=== PATIENT | female | born 1965 | race Caucasian/White ===

== ENCOUNTER → 2016-10-25 | Outpatient (CLI) | payer MEDICARE, MEDICAID ==
[~2016-10-25] MED LIST: ACET-1600 PO; ACID1TAB7 PO; ALBU8.5H5 INH; BOSE125T PO; BUME2TAB PO; CHOL20003 PO; DICL100G8 TD; DIPH-526 PO; ESCI10TA10 PO; ESCI5TAB7 PO; FLUC150T2 PO; FURO80TA3 PO; FURO80TA77 PO; METO5TAB5 PO; METR500T PO; POTA20PI5 PO; POTA20TA89 PO; SPIR100T PO; TADA20TA33 PO; TIZA4CAP PO; WARF10TA PO; WARF7.5T PO; ZOLP-413 PO; oxygen IH
[2016-10-25 13:21] LABS: ASPARTATE AMINO TRANSFERASE 33 U/L (15-37); BLOOD UREA NITROGEN 21 mg/dL (7-18)
== END | disposition home or self-care (01) ==
LOC: CFH 11:48
PROVIDERS: ATTEND Internal Medicine Cardiovascular Disease
DX: I27.0 Primary pulmonary hypertension (principal)
CPT/HCPCS: 36415; 80053

== ENCOUNTER → 2016-10-26 | Outpatient (CLI) | payer MEDICARE, MEDICAID | END | disposition home or self-care (01) | LOC: LAB 10:09 | PROVIDERS: ATTEND Nurse Practitioner Family | DX: Z13.6 Encounter for screening for cardiovascular disorders (principal); Z72.89 Other problems related to lifestyle | CPT/HCPCS: 36415; 80061; 86803 ==

== ENCOUNTER → 2017-08-05 | Outpatient (CLI) | payer MEDICARE, MEDICAID ==
[~2017-08-05] MED LIST changes: +CHOL2000 PO; -CHOL20003 PO; +DICL100G19 TD; -DICL100G8 TD
== END ==
LOC: CFH 09:29 → EDSTATUS 10:00
PROVIDERS: ATTEND Internal Medicine Cardiovascular Disease
DX: I27.0 Primary pulmonary hypertension (principal)
CPT/HCPCS: 93306

== ENCOUNTER → 2017-08-28 | Outpatient (CLI) | payer MEDICARE, MEDICAID ==
[2017-08-28 15:41] LABS: INTERNATIONAL NORMALIZED RATIO 1.1 (0.93-1.1); PROTHROMBIN TIME 11.4 Seconds (9.6-11.5)
[2017-08-28 15:41] LABS: ANION GAP 9 mmol/L (5-15); CALCIUM 8.9 mg/dL (8.5-10.1); CHLORIDE 106 mmol/L (98-107); CREATININE 1.38 mg/dL (0.55-1.02)
== END | disposition home or self-care (01) ==
LOC: CFH 14:36
PROVIDERS: ATTEND Orthopaedic Surgery
DX: Z12.31 Encounter for screening mammogram for malignant neoplasm of breast (principal); M75.101 Unspecified rotator cuff tear or rupture of right shoulder, not specified as traumatic; M19.011 Primary osteoarthritis, right shoulder
CPT/HCPCS: 36415; 80048; 83880; 85610; 77067

== ENCOUNTER 2017-09-04 09:19 | Inpatient (IN) | payer MEDICARE, MEDICAID ==
[~2017-09-04] VITALS: Ht 170.2 cm; Wt 87.2 kg
[2017-09-04 10:40] LABS: BASOPHILS # (AUTO) 0.02 x10^3/uL (0-0.1); BASOPHILS % (AUTO) 0 % (0-1); EOSINOPHILS # (AUTO) 0.08 x10^3/uL (0-0.4); EOSINOPHILS % (AUTO) 1 % (1-7); LYMPHOCYTES # (AUTO) 1.23 x10^3/uL (1-3.4); LYMPHOCYTES % (AUTO) 7 % (22-44); MD NO; MEAN CORPUSCULAR HEMOGLOBIN 31.4 pg (27.0-34.8); MEAN CORPUSCULAR HGB CONC 34.1 g/dL (32.4-35.8); MEAN PLATELET VOLUME 9.8 fL (7.4-10.4); MONOCYTES # (AUTO) 0.91 x10^3/uL (0.2-0.8); MONOCYTES % (AUTO) 5 % (2-9); NEUTROPHILS # (AUTO) 14.46 x10^3/uL (1.8-6.8); NEUTROPHILS % (AUTO) 87 % (42-75); PLATELET COUNT 181 x10^3/uL (130-400); RED BLOOD COUNT 4.41 x10^6/uL (3.82-5.3); RED CELL DISTRIBUTION WIDTH 13.5 % (9.6-15.2)
[2017-09-04 10:55] LABS: ALBUMIN 3.1 g/dL (3.4-5.0); ANION GAP 10 mmol/L (5-15); CHLORIDE 104 mmol/L (98-107)
[2017-09-04 10:59] LABS: CREATININE 1.11 mg/dL (0.55-1.02); TROPONIN I < 0.015 ng/mL (0.000-0.045)
[2017-09-04] MEDS ORDERED: KETOROLAC 30 MG/1 ML ONE (11:07)
[2017-09-04] MEDS ORDERED: KETOROLAC 30 MG/1 ML IVPush ONE (11:30)
[2017-09-04] MEDS ORDERED: methylPREDNISolone SOD SUCC 125 MG/2 ML ONE (11:45)
[2017-09-04] MEDS ORDERED: DIPHENHYDRAMINE 50 MG/ML, 1ML ONE (11:45)
[2017-09-04] MEDS ORDERED: SODIUM CHLORIDE 0.9% 1,000ML IVBOLUS ONE (12:00)
[2017-09-04] MEDS ORDERED: methylPREDNISolone SOD SUCC 125 MG/2 ML IVPush ONE (12:00)
[2017-09-04] MEDS ORDERED: DIPHENHYDRAMINE 50 MG/ML, 1ML IVPush ONE (12:00)
[2017-09-04] MEDS ORDERED: OMNIPAQUE 350 MG/ML, 100ML BOTTLE ONE (12:07)
[2017-09-04] MEDS ORDERED: CEFTRIAXONE PMX 1GM/50ML 50 ML ONE (13:25)
[2017-09-04] MEDS ORDERED: SODIUM CHLORIDE FLUSH 10ML SYR IVF PRN (13:30)
[2017-09-04] MEDS ORDERED: AZITHROMYCIN 500 MG in SODIUM CHLORIDE 0.9% 250 ML IVPB ONE (13:30)
[2017-09-04] MEDS ORDERED: CEFTRIAXONE PMX 1GM/50ML 50 ML IVPB ONE (13:30)
[2017-09-04] MEDS ORDERED: TREP1TAB PO (14:13)
[2017-09-04] MEDS ORDERED: TREP2.5T PO (14:13)
[2017-09-04] MEDS ORDERED: TADA20TA33 PO (14:13)
[2017-09-04] MEDS ORDERED: MACI10TA PO (14:13)
[2017-09-04] MEDS ORDERED: LORA0.5T PO (14:13)
[2017-09-04] MEDS ORDERED: FLUT50DI INH (14:13)
[2017-09-04] MEDS ORDERED: OSEL75CA PO (14:13)
[2017-09-04] MEDS ORDERED: MELA1TAB22 PO (14:13)
[2017-09-04] MEDS ORDERED: ESCI20TA10 PO (14:13)
[2017-09-04 14:42] VITALS: BP 98/65
[2017-09-04] MEDS ORDERED: morphine SULFATE 10 MG/ML, 1ML IVPush PRN (16:00)
[2017-09-04] MEDS ORDERED: ONDANSETRON ODT 4 MG PO PRN (16:00)
[2017-09-04] MEDS: POTASSIUM CHLORIDE 20 MEQ TAB.ER.PRT PO SCH (16:00)
[2017-09-04] MEDS ORDERED: hydrALAzine 20 MG/ML, 1ML IVPush PRN (16:00)
[2017-09-04] MEDS ORDERED: ONDANSETRON 2MG/ML, 2ML IVPush PRN (16:00)
[2017-09-04] MEDS ORDERED: TREPROSTINIL MC SCH (16:30)
[2017-09-04 16:31] VITALS: BP 103/64
[2017-09-04 16:33] VITALS: BP 103/64
[2017-09-04 16:38] LABS: INTERNATIONAL NORMALIZED RATIO 1.91 (0.93-1.1); PROTHROMBIN TIME 19.4 Seconds (9.6-11.5)
[2017-09-04] MEDS ORDERED: BUME2TAB PO (19:37)
[2017-09-04 20:00] VITALS: BP 120/79
[2017-09-04] MEDS ORDERED: TIZANIDINE 4MG TABLET ONE ×2 (20:02→22:51)
[2017-09-04] MEDS: TIZANIDINE 2MG TABLET PO SCH ×2 (20:11→23:03)
[2017-09-04] MEDS: ZOLPIDEM 5MG TABLET PO PRN ×2 (20:12→21:24)
[2017-09-04] MEDS: HYDROcodone/APAP 5/325 TABLET PO PRN (20:13)
[2017-09-04] MEDS ORDERED: TEMAZEPAM 15 MG CAPSULE PO PRN (21:00)
[2017-09-04] MEDS ORDERED: PYRIDOXINE HCL HOMEMEDPO ONE (21:00)
[2017-09-04] MEDS ORDERED: MELATONIN HOMEMEDPO ONE (21:00)
[2017-09-04] MEDS ORDERED: METOLAZONE 5 MG TABLET PO SCH (21:00)
[2017-09-04] MEDS ORDERED: FUROSEMIDE 80 MG TABLET PO SCH (21:00)
[2017-09-04] MEDS ORDERED: SPIRONOLACTONE 50 MG TABLET PO SCH (21:00)
[2017-09-04] MEDS: GUAIFENESIN/DM 100-10MG, 5ML UDC PO PRN (23:02)
[2017-09-05] MEDS ORDERED: WARFARIN 7.5 MG TABLET PO-COUM SCH (00:30)
[2017-09-05] MEDS: POTASSIUM CHLORIDE 20 MEQ TAB.ER.PRT PO SCH ×2 (00:50→08:31)
[2017-09-05] MEDS: TREPROSTINIL DIOLAMINE PO SCH ×4 (00:50→23:55)
[2017-09-05] MEDS: TREPROSTINIL DIOLAMINE 2.5 MG PO SCH ×4 (00:51→23:55)
[2017-09-05 00:59] VITALS: BP 97/63
[2017-09-05] MEDS ORDERED: CEFTRIAXONE PMX 2GM/50ML 50 ML IV SCH (01:30)
[2017-09-05] MEDS ORDERED: CEFTRIAXONE 2 GM in DEXTROSE 5% 50 ML IV SCH (01:30)
[2017-09-05] MEDS: ACETAMINOPHEN 325 MG TABLET PO PRN (04:47)
[2017-09-05] MEDS: GUAIFENESIN/DM 100-10MG, 5ML UDC PO PRN ×3 (04:47→21:12)
[2017-09-05 05:37] LABS: MEAN CORPUSCULAR HEMOGLOBIN 30.9 pg (27.0-34.8); MEAN CORPUSCULAR HGB CONC 33.2 g/dL (32.4-35.8); MEAN CORPUSCULAR VOLUME 93.1 fL (80-100); MEAN PLATELET VOLUME 10.4 fL (7.4-10.4); PLATELET COUNT 165 x10^3/uL (130-400); RED BLOOD COUNT 4.03 x10^6/uL (3.82-5.3); RED CELL DISTRIBUTION WIDTH 13.4 % (9.6-15.2)
[2017-09-05 05:39] LABS: INTERNATIONAL NORMALIZED RATIO 1.91 (0.93-1.1); PROTHROMBIN TIME 19.4 Seconds (9.6-11.5)
[2017-09-05 05:44] LABS: CHLORIDE 104 mmol/L (98-107)
[2017-09-05 06:03] LABS: ALANINE AMINOTRANSFERASE 36 U/L (12-78); ALBUMIN 2.8 g/dL (3.4-5.0); ALKALINE PHOSPHATASE 72 U/L (45-117); ANION GAP 10 mmol/L (5-15); BILIRUBIN,TOTAL 0.3 mg/dL (0.2-1.0); CALCIUM 8.4 mg/dL (8.5-10.1); CREATININE 1.15 mg/dL (0.55-1.02); TOTAL PROTEIN 7.6 g/dL (6.4-8.2)
[2017-09-05 06:24] LABS: BASOPHILS # (AUTO) 0.07 x10^3/uL (0-0.1); BASOPHILS % (AUTO) 0 % (0-1); EOSINOPHILS # (AUTO) 0.01 x10^3/uL (0-0.4); EOSINOPHILS % (AUTO) 0 % (1-7); LYMPHOCYTES # (AUTO) 1.25 x10^3/uL (1-3.4); LYMPHOCYTES % (AUTO) 6 % (22-44); MD SCAN; MONOCYTES # (AUTO) 0.66 x10^3/uL (0.2-0.8); MONOCYTES % (AUTO) 3 % (2-9); NEUTROPHILS # (AUTO) 18.02 x10^3/uL (1.8-6.8); NEUTROPHILS % (AUTO) 90 % (42-75)
[2017-09-05 08:00] VITALS: BP 110/69
[2017-09-05] MEDS ORDERED: BUMETANIDE 1 MG TABLET PO SCH (08:30)
[2017-09-05] MEDS: MACITENTAN HOMEMEDPO SCH (08:30)
[2017-09-05] MEDS: TEMPLATE NON-FORMULARY MED. (Tadalafil** (Adcirca**) 40 MG) HOMEMEDPO SCH (08:30)
[2017-09-05] MEDS: SPIRONOLACTONE 50 MG TABLET PO SCH ×2 (08:31→16:27)
[2017-09-05] MEDS: OSELTAMIVIR 75 MG CAPSULE PO SCH ×2 (08:32→16:26)
[2017-09-05] MEDS: METOLAZONE 5 MG TABLET PO SCH ×2 (08:32→16:26)
[2017-09-05] MEDS ORDERED: ENOXAPARIN 40 MG/0.4 ML SQ SCH (09:00)
[2017-09-05] MEDS: DOXYCYCLINE 100MG TABLET PO SCH ×2 (09:00→21:13)
[2017-09-05] MEDS ORDERED: CITALOPRAM 20 MG TABLET PO SCH (09:00)
[2017-09-05] MEDS ORDERED: OSELTAMIVIR 75 MG CAPSULE PO SCH (09:00)
[2017-09-05] MEDS: HYDROcodone/APAP 5/325 TABLET PO PRN ×3 (09:25→23:54)
[2017-09-05] MEDS: ALBUTEROL/IPRATROPIUM 2.5MG/0.5MG, 3 ML NPPB PRN (10:37)
[2017-09-05] MEDS: FLUTICASONE FUROATE 100MCG/INH INH SCH (11:07)
[2017-09-05] MEDS: LORazepam 0.5MG TABLET PO PRN (12:07)
[2017-09-05 13:28] LABS: ANION GAP 12 mmol/L (5-15); CALCIUM 8.7 mg/dL (8.5-10.1); CHLORIDE 103 mmol/L (98-107)
[2017-09-05 14:00] VITALS: BP 103/64
[2017-09-05] MEDS ORDERED: AZITHROMYCIN 500 MG in SODIUM CHLORIDE 0.9% 250 ML IV SCH (14:30)
[2017-09-05] MEDS: LINEZOLID PMX 600MG/300ML 300 ML IV SCH (14:45)
[2017-09-05] MEDS: LEXAPRO 20 MG HOMEMEDPO SCH (16:30)
[2017-09-05 19:04] VITALS: BP 107/69
[2017-09-05] MEDS: TIZANIDINE 2MG TABLET PO SCH (21:13)
[2017-09-05] MEDS: ZOLPIDEM 5MG TABLET PO PRN (21:48)
[2017-09-06] MEDS ORDERED: WARFARIN 10 MG TABLET PO-COUM ONE (00:30)
[2017-09-06 02:10] VITALS: BP 104/67
[2017-09-06] MEDS: LINEZOLID PMX 600MG/300ML 300 ML IV SCH ×2 (02:40→14:31)
[2017-09-06 05:20] LABS: BASOPHILS # (AUTO) 0.06 x10^3/uL (0-0.1); BASOPHILS % (AUTO) 0 % (0-1); EOSINOPHILS # (AUTO) 0.13 x10^3/uL (0-0.4); EOSINOPHILS % (AUTO) 1 % (1-7); LYMPHOCYTES # (AUTO) 1.81 x10^3/uL (1-3.4); LYMPHOCYTES % (AUTO) 13 % (22-44); MD NO; MEAN CORPUSCULAR HEMOGLOBIN 30.9 pg (27.0-34.8); MEAN CORPUSCULAR HGB CONC 33.2 g/dL (32.4-35.8); MEAN CORPUSCULAR VOLUME 93.1 fL (80-100); MEAN PLATELET VOLUME 9.8 fL (7.4-10.4); MONOCYTES # (AUTO) 0.77 x10^3/uL (0.2-0.8); MONOCYTES % (AUTO) 5 % (2-9); NEUTROPHILS # (AUTO) 11.64 x10^3/uL (1.8-6.8); NEUTROPHILS % (AUTO) 81 % (42-75); PLATELET COUNT 173 x10^3/uL (130-400); RED BLOOD COUNT 3.76 x10^6/uL (3.82-5.3); RED CELL DISTRIBUTION WIDTH 13.6 % (9.6-15.2)
[2017-09-06 05:21] LABS: CHLORIDE 105 mmol/L (98-107)
[2017-09-06 05:33] LABS: ALANINE AMINOTRANSFERASE 32 U/L (12-78); ALBUMIN 2.5 g/dL (3.4-5.0); ALKALINE PHOSPHATASE 58 U/L (45-117); ANION GAP 9 mmol/L (5-15); BILIRUBIN,TOTAL 0.3 mg/dL (0.2-1.0); CALCIUM 8.1 mg/dL (8.5-10.1); CREATININE 1.05 mg/dL (0.55-1.02); TOTAL PROTEIN 6.6 g/dL (6.4-8.2)
[2017-09-06 08:00] VITALS: BP 109/71
[2017-09-06 08:19] LABS: INTERNATIONAL NORMALIZED RATIO 1.84 (0.93-1.1); PROTHROMBIN TIME 18.7 Seconds (9.6-11.5)
[2017-09-06] MEDS: TREPROSTINIL DIOLAMINE 2.5 MG PO SCH ×2 (08:29→16:15)
[2017-09-06] MEDS: TREPROSTINIL DIOLAMINE PO SCH ×2 (08:29→16:15)
[2017-09-06] MEDS: MACITENTAN HOMEMEDPO SCH (08:30)
[2017-09-06] MEDS: TEMPLATE NON-FORMULARY MED. (Tadalafil** (Adcirca**) 40 MG) HOMEMEDPO SCH (08:30)
[2017-09-06] MEDS: SPIRONOLACTONE 50 MG TABLET PO SCH ×2 (08:32→16:15)
[2017-09-06] MEDS: METOLAZONE 5 MG TABLET PO SCH ×2 (08:33→16:15)
[2017-09-06] MEDS: GUAIFENESIN/DM 100-10MG, 5ML UDC PO PRN ×3 (08:33→22:02)
[2017-09-06] MEDS: OSELTAMIVIR 75 MG CAPSULE PO SCH ×2 (08:33→16:15)
[2017-09-06] MEDS: FLUTICASONE FUROATE 100MCG/INH INH SCH (08:33)
[2017-09-06] MEDS: HYDROcodone/APAP 5/325 TABLET PO PRN ×2 (08:33→17:19)
[2017-09-06] MEDS: DOXYCYCLINE 100MG TABLET PO SCH ×2 (08:33→20:17)
[2017-09-06] MEDS ORDERED: POTASSIUM CHLORIDE 20 MEQ TAB.ER.PRT ONE (08:43)
[2017-09-06] MEDS: ACETAMINOPHEN 325 MG TABLET PO PRN (08:53)
[2017-09-06] MEDS: BUMETANIDE 1 MG TABLET PO SCH ×2 (08:54→20:20)
[2017-09-06 14:00] VITALS: BP 112/72
[2017-09-06] MEDS: LEXAPRO 20 MG HOMEMEDPO SCH (16:15)
[2017-09-06] MEDS ORDERED: POTASSIUM CHLORIDE 20 MEQ TAB.ER.PRT PO SCH (17:00)
[2017-09-06 18:20] VITALS: BP 107/66
[2017-09-06] MEDS: TIZANIDINE 2MG TABLET PO SCH (20:17)
[2017-09-06] MEDS: ZOLPIDEM 5MG TABLET PO PRN (21:27)
[2017-09-07] MEDS: TREPROSTINIL DIOLAMINE PO SCH ×3 (00:30→16:52)
[2017-09-07] MEDS ORDERED: WARFARIN 10 MG TABLET PO-COUM ONE (00:30)
[2017-09-07] MEDS: TREPROSTINIL DIOLAMINE 2.5 MG PO SCH ×3 (00:30→16:51)
[2017-09-07] MEDS: ACETAMINOPHEN 325 MG TABLET PO PRN (00:30)
[2017-09-07 01:15] VITALS: BP 143/82
[2017-09-07 01:30] VITALS: BP 144/83
[2017-09-07 01:49] VITALS: BP 102/63
[2017-09-07] MEDS: LINEZOLID PMX 600MG/300ML 300 ML IV SCH ×2 (02:18→14:30)
[2017-09-07] MEDS: HYDROcodone/APAP 5/325 TABLET PO PRN ×2 (03:25→17:21)
[2017-09-07] MEDS: LORazepam 0.5MG TABLET PO PRN ×2 (04:49→12:36)
[2017-09-07] MEDS ORDERED: KETOROLAC 30 MG/1 ML IVPush ONE (05:00)
[2017-09-07] MEDS ORDERED: PROCHLORPERAZINE 5 MG/ML, 2ML IVPush PRN (05:00)
[2017-09-07 05:32] LABS: BASOPHILS # (AUTO) 0.03 x10^3/uL (0-0.1); BASOPHILS % (AUTO) 0 % (0-1); EOSINOPHILS # (AUTO) 0.24 x10^3/uL (0-0.4); EOSINOPHILS % (AUTO) 2 % (1-7); LYMPHOCYTES # (AUTO) 2.74 x10^3/uL (1-3.4); LYMPHOCYTES % (AUTO) 18 % (22-44); MD NO; MEAN CORPUSCULAR HEMOGLOBIN 31.1 pg (27.0-34.8); MEAN CORPUSCULAR HGB CONC 33.6 g/dL (32.4-35.8); MEAN CORPUSCULAR VOLUME 92.4 fL (80-100); MEAN PLATELET VOLUME 9.8 fL (7.4-10.4); MONOCYTES # (AUTO) 0.92 x10^3/uL (0.2-0.8); MONOCYTES % (AUTO) 6 % (2-9); NEUTROPHILS # (AUTO) 11.64 x10^3/uL (1.8-6.8); NEUTROPHILS % (AUTO) 75 % (42-75); PLATELET COUNT 168 x10^3/uL (130-400); RED BLOOD COUNT 3.77 x10^6/uL (3.82-5.3); RED CELL DISTRIBUTION WIDTH 13.4 % (9.6-15.2)
[2017-09-07] MEDS ORDERED: BUMETANIDE 1 MG TABLET ONE (05:35)
[2017-09-07] MEDS: BUMETANIDE 1 MG TABLET PO SCH ×2 (05:37→16:49)
[2017-09-07 05:38] LABS: INTERNATIONAL NORMALIZED RATIO 2.64 (0.93-1.1); PROTHROMBIN TIME 26.7 Seconds (9.6-11.5)
[2017-09-07 05:43] LABS: ALBUMIN 2.6 g/dL (3.4-5.0); ANION GAP 12 mmol/L (5-15); CALCIUM 8.1 mg/dL (8.5-10.1); CHLORIDE 101 mmol/L (98-107)
[2017-09-07 05:44] LABS: CREATININE 1.07 mg/dL (0.55-1.02)
[2017-09-07] MEDS: ALBUTEROL/IPRATROPIUM 2.5MG/0.5MG, 3 ML NPPB PRN (05:51)
[2017-09-07] MEDS ORDERED: POTASSIUM CHLORIDE 20 MEQ TAB.ER.PRT PO SCH ×2 (08:00→17:00)
[2017-09-07] MEDS: MACITENTAN HOMEMEDPO SCH (08:01)
[2017-09-07] MEDS: TEMPLATE NON-FORMULARY MED. (Tadalafil** (Adcirca**) 40 MG) HOMEMEDPO SCH (08:02)
[2017-09-07] MEDS: DOXYCYCLINE 100MG TABLET PO SCH ×2 (08:04→20:58)
[2017-09-07] MEDS: OSELTAMIVIR 75 MG CAPSULE PO SCH ×2 (08:04→16:50)
[2017-09-07] MEDS: METOLAZONE 5 MG TABLET PO SCH ×2 (08:08→16:49)
[2017-09-07] MEDS: FLUTICASONE FUROATE 100MCG/INH INH SCH (08:09)
[2017-09-07] MEDS ORDERED: ALDACTONE 50 MG HOMEMEDPO SCH (08:30)
[2017-09-07] MEDS ORDERED: FUROSEMIDE 20 MG/2 ML IV ONE (11:30)
[2017-09-07] MEDS ORDERED: SPIRONOLACTONE 100 MG TABLET PO SCH (11:30)
[2017-09-07] MEDS ORDERED: POTASSIUM CHLORIDE 20 MEQ TAB.ER.PRT PO ONE (11:30)
[2017-09-07] MEDS: GUAIFENESIN/DM 100-10MG, 5ML UDC PO PRN (16:49)
[2017-09-07] MEDS: LEXAPRO 20 MG HOMEMEDPO SCH (16:52)
[2017-09-07] MEDS: SPIRONOLACTONE 100 MG HOMEMEDPO SCH (17:00)
[2017-09-07] MEDS: TIZANIDINE 2MG TABLET PO SCH (20:57)
[2017-09-07] MEDS: ZOLPIDEM 5MG TABLET PO PRN (22:14)
[2017-09-08] MEDS ORDERED: WARFARIN 2 MG TABLET PO-COUM ONE (00:30)
[2017-09-08] MEDS: TREPROSTINIL DIOLAMINE PO SCH ×3 (00:30→15:50)
[2017-09-08] MEDS: TREPROSTINIL DIOLAMINE 2.5 MG PO SCH ×3 (00:30→15:50)
[2017-09-08] MEDS ORDERED: WARFARIN 3 MG TABLET PO-COUM ONE (00:51)
[2017-09-08] MEDS ORDERED: WARFARIN 1 MG TABLET PO-COUM ONE (00:51)
[2017-09-08] MEDS: ACETAMINOPHEN 325 MG TABLET PO PRN ×3 (01:20→15:45)
[2017-09-08] MEDS: LINEZOLID PMX 600MG/300ML 300 ML IV SCH ×2 (03:22→15:44)
[2017-09-08 04:27] LABS: INTERNATIONAL NORMALIZED RATIO 3.5 (0.93-1.1); PROTHROMBIN TIME 35.2 Seconds (9.6-11.5)
[2017-09-08 04:33] LABS: ALBUMIN 2.4 g/dL (3.4-5.0); ANION GAP 9 mmol/L (5-15); CALCIUM 7.9 mg/dL (8.5-10.1); CHLORIDE 102 mmol/L (98-107)
[2017-09-08 04:38] LABS: ALANINE AMINOTRANSFERASE 26 U/L (12-78); ALKALINE PHOSPHATASE 52 U/L (45-117); BILIRUBIN,TOTAL 0.4 mg/dL (0.2-1.0); CREATININE 1.33 mg/dL (0.55-1.02); TOTAL PROTEIN 6.5 g/dL (6.4-8.2)
[2017-09-08 04:40] LABS: BASOPHILS # (AUTO) 0.04 x10^3/uL (0-0.1); BASOPHILS % (AUTO) 0 % (0-1); EOSINOPHILS # (AUTO) 0.15 x10^3/uL (0-0.4); EOSINOPHILS % (AUTO) 1 % (1-7); LYMPHOCYTES # (AUTO) 1.61 x10^3/uL (1-3.4); LYMPHOCYTES % (AUTO) 14 % (22-44); MD NO; MEAN CORPUSCULAR HEMOGLOBIN 30.5 pg (27.0-34.8); MEAN CORPUSCULAR HGB CONC 33.2 g/dL (32.4-35.8); MEAN PLATELET VOLUME 9.1 fL (7.4-10.4); MONOCYTES # (AUTO) 0.81 x10^3/uL (0.2-0.8); MONOCYTES % (AUTO) 7 % (2-9); NEUTROPHILS # (AUTO) 9.28 x10^3/uL (1.8-6.8); NEUTROPHILS % (AUTO) 78 % (42-75); PLATELET COUNT 165 x10^3/uL (130-400); RED BLOOD COUNT 3.56 x10^6/uL (3.82-5.3); RED CELL DISTRIBUTION WIDTH 13.5 % (9.6-15.2)
[2017-09-08] MEDS: LORazepam 0.5MG TABLET PO PRN (05:27)
[2017-09-08] MEDS: SPIRONOLACTONE 100 MG HOMEMEDPO SCH ×2 (08:00→15:51)
[2017-09-08] MEDS ORDERED: HOLD COUMADIN MC PRN (08:00)
[2017-09-08] MEDS: MACITENTAN HOMEMEDPO SCH (08:30)
[2017-09-08] MEDS ORDERED: MAGNESIUM SULFATE PMX 4GM/100M 100 ML IV ONE (08:30)
[2017-09-08] MEDS: TEMPLATE NON-FORMULARY MED. (Tadalafil** (Adcirca**) 40 MG) HOMEMEDPO SCH (08:30)
[2017-09-08] MEDS: POTASSIUM CHLORIDE 20 MEQ TAB.ER.PRT PO SCH ×3 (09:27→21:14)
[2017-09-08] MEDS: GUAIFENESIN/DM 100-10MG, 5ML UDC PO PRN ×2 (09:27→15:46)
[2017-09-08] MEDS: OSELTAMIVIR 75 MG CAPSULE PO SCH ×2 (09:28→21:13)
[2017-09-08] MEDS: DOXYCYCLINE 100MG TABLET PO SCH ×2 (09:29→21:12)
[2017-09-08] MEDS: FLUTICASONE FUROATE 100MCG/INH INH SCH (09:35)
[2017-09-08] MEDS: BUMETANIDE 1 MG TABLET PO SCH ×2 (09:39→15:46)
[2017-09-08] MEDS: METOLAZONE 5 MG TABLET PO SCH ×2 (09:39→15:45)
[2017-09-08 12:48] VITALS: BP 112/78
[2017-09-08] MEDS: HYDROcodone/APAP 5/325 TABLET PO PRN (12:53)
[2017-09-08] MEDS ORDERED: FUROSEMIDE 20 MG/2 ML IV ONE (15:30)
[2017-09-08] MEDS: LACTOBACILLUS CHEW TABLET PO SCH ×3 (15:45→21:13)
[2017-09-08] MEDS: LEXAPRO 20 MG HOMEMEDPO SCH (15:49)
[2017-09-08 20:22] VITALS: BP 110/68
[2017-09-08] MEDS: TIZANIDINE 2MG TABLET PO SCH (21:13)
[2017-09-09] MEDS: TREPROSTINIL DIOLAMINE PO SCH ×3 (00:27→16:22)
[2017-09-09] MEDS: ACETAMINOPHEN 325 MG TABLET PO PRN ×2 (00:28→16:26)
[2017-09-09] MEDS: ZOLPIDEM 5MG TABLET PO PRN ×2 (00:28→20:18)
[2017-09-09] MEDS: TREPROSTINIL DIOLAMINE 2.5 MG PO SCH ×3 (00:28→16:22)
[2017-09-09 00:51] VITALS: BP 104/63
[2017-09-09] MEDS: LINEZOLID PMX 600MG/300ML 300 ML IV SCH ×2 (02:47→15:40)
[2017-09-09] MEDS: LORazepam 0.5MG TABLET PO PRN (03:23)
[2017-09-09 05:01] LABS: BASOPHILS # (AUTO) 0.08 x10^3/uL (0-0.1); BASOPHILS % (AUTO) 1 % (0-1); EOSINOPHILS # (AUTO) 0.29 x10^3/uL (0-0.4); EOSINOPHILS % (AUTO) 2 % (1-7); LYMPHOCYTES # (AUTO) 2.04 x10^3/uL (1-3.4); LYMPHOCYTES % (AUTO) 16 % (22-44); MD NO; MEAN CORPUSCULAR HEMOGLOBIN 31.2 pg (27.0-34.8); MEAN CORPUSCULAR HGB CONC 33.5 g/dL (32.4-35.8); MEAN CORPUSCULAR VOLUME 93.1 fL (80-100); MEAN PLATELET VOLUME 9.1 fL (7.4-10.4); MONOCYTES # (AUTO) 0.71 x10^3/uL (0.2-0.8); MONOCYTES % (AUTO) 6 % (2-9); NEUTROPHILS # (AUTO) 9.72 x10^3/uL (1.8-6.8); NEUTROPHILS % (AUTO) 76 % (42-75); PLATELET COUNT 202 x10^3/uL (130-400); RED BLOOD COUNT 3.62 x10^6/uL (3.82-5.3); RED CELL DISTRIBUTION WIDTH 13.5 % (9.6-15.2)
[2017-09-09 05:03] LABS: INTERNATIONAL NORMALIZED RATIO 2.86 (0.93-1.1); PROTHROMBIN TIME 28.9 Seconds (9.6-11.5)
[2017-09-09 05:09] LABS: ALBUMIN 2.6 g/dL (3.4-5.0); ANION GAP 8 mmol/L (5-15); CALCIUM 8.3 mg/dL (8.5-10.1); CHLORIDE 101 mmol/L (98-107)
[2017-09-09 05:13] LABS: ALANINE AMINOTRANSFERASE 24 U/L (12-78); ALKALINE PHOSPHATASE 55 U/L (45-117); BILIRUBIN,TOTAL 0.4 mg/dL (0.2-1.0); CREATININE 1.29 mg/dL (0.55-1.02)
[2017-09-09 05:19] VITALS: BP 112/72
[2017-09-09 06:56] VITALS: BP 118/75
[2017-09-09] MEDS: SPIRONOLACTONE 100 MG HOMEMEDPO SCH ×2 (08:00→16:22)
[2017-09-09] MEDS: DOXYCYCLINE 100MG TABLET PO SCH ×2 (08:05→20:18)
[2017-09-09] MEDS: POTASSIUM CHLORIDE 20 MEQ TAB.ER.PRT PO SCH ×2 (08:05→16:22)
[2017-09-09] MEDS: TEMPLATE NON-FORMULARY MED. (Tadalafil** (Adcirca**) 40 MG) HOMEMEDPO SCH (08:08)
[2017-09-09] MEDS: MACITENTAN HOMEMEDPO SCH (08:08)
[2017-09-09] MEDS: FLUTICASONE FUROATE 100MCG/INH INH SCH (08:09)
[2017-09-09] MEDS: METOLAZONE 5 MG TABLET PO SCH ×2 (09:15→16:26)
[2017-09-09] MEDS: BUMETANIDE 1 MG TABLET PO SCH ×2 (09:15→16:26)
[2017-09-09] MEDS: HYDROcodone/APAP 5/325 TABLET PO PRN ×2 (09:16→13:55)
[2017-09-09] MEDS: LACTOBACILLUS CHEW TABLET PO SCH ×3 (09:40→20:16)
[2017-09-09] MEDS: OSELTAMIVIR 75 MG CAPSULE PO SCH ×2 (09:40→20:16)
[2017-09-09] MEDS: GUAIFENESIN/DM 100-10MG, 5ML UDC PO PRN ×2 (09:46→23:20)
[2017-09-09 10:29] LABS: CLOSTRIDIUM DIFFICILE ANTIGEN NEGATIVE; CLOSTRIDIUM DIFFICILE TOXIN NEGATIVE (Negative)
[2017-09-09] MEDS ORDERED: FUROSEMIDE 20 MG/2 ML IV ONE (11:30)
[2017-09-09] MEDS ORDERED: FLUCONAZOLE 100 MG TABLET PO ONE (11:30)
[2017-09-09] MEDS: VANCOMYCIN 50 MG/ML ORAL SUSP PO SCH ×3 (12:00→23:19)
[2017-09-09 12:08] VITALS: BP 112/65
[2017-09-09] MEDS ORDERED: HEMORRHOIDAL OINT, 28 GM (PREP H) RC PRN (15:30)
[2017-09-09] MEDS: HEMORRHOIDAL OINT, 28 GM (PREP H) RC PRN (16:00)
[2017-09-09] MEDS: LEXAPRO 20 MG HOMEMEDPO SCH (16:22)
[2017-09-09 18:48] VITALS: BP 117/74
[2017-09-09] MEDS ORDERED: TIZANIDINE 4MG TABLET ONE (20:01)
[2017-09-09] MEDS: TIZANIDINE 2MG TABLET PO SCH (20:18)
[2017-09-10] MEDS: TREPROSTINIL DIOLAMINE 2.5 MG PO SCH ×3 (00:30→17:24)
[2017-09-10] MEDS: TREPROSTINIL DIOLAMINE PO SCH ×3 (00:30→17:25)
[2017-09-10] MEDS ORDERED: WARFARIN 2 MG TABLET PO-COUM ONE (00:30)
[2017-09-10] MEDS: ACETAMINOPHEN 325 MG TABLET PO PRN (00:46)
[2017-09-10] MEDS: POTASSIUM CHLORIDE 20 MEQ TAB.ER.PRT PO SCH ×3 (00:46→17:08)
[2017-09-10 01:11] VITALS: BP 119/81
[2017-09-10] MEDS: HYDROcodone/APAP 5/325 TABLET PO PRN ×2 (02:26→09:31)
[2017-09-10] MEDS: LINEZOLID PMX 600MG/300ML 300 ML IV SCH ×2 (02:26→14:41)
[2017-09-10] MEDS: VANCOMYCIN 50 MG/ML ORAL SUSP PO SCH ×4 (04:16→23:19)
[2017-09-10 04:46] VITALS: BP 112/74
[2017-09-10 06:10] LABS: CHLORIDE 100 mmol/L (98-107)
[2017-09-10 06:19] LABS: ALANINE AMINOTRANSFERASE 26 U/L (12-78); ALBUMIN 2.6 g/dL (3.4-5.0); ALKALINE PHOSPHATASE 57 U/L (45-117); ANION GAP 8 mmol/L (5-15); BILIRUBIN,TOTAL 0.5 mg/dL (0.2-1.0); CALCIUM 8.3 mg/dL (8.5-10.1); CREATININE 1.15 mg/dL (0.55-1.02); TOTAL PROTEIN 7.1 g/dL (6.4-8.2)
[2017-09-10 06:22] LABS: BASOPHILS # (AUTO) 0.03 x10^3/uL (0-0.1); BASOPHILS % (AUTO) 0 % (0-1); EOSINOPHILS # (AUTO) 0.28 x10^3/uL (0-0.4); EOSINOPHILS % (AUTO) 2 % (1-7); LYMPHOCYTES # (AUTO) 2.06 x10^3/uL (1-3.4); LYMPHOCYTES % (AUTO) 15 % (22-44); MD NO; MEAN CORPUSCULAR HEMOGLOBIN 31.2 pg (27.0-34.8); MEAN CORPUSCULAR HGB CONC 33.7 g/dL (32.4-35.8); MEAN CORPUSCULAR VOLUME 92.4 fL (80-100); MEAN PLATELET VOLUME 9.9 fL (7.4-10.4); MONOCYTES # (AUTO) 0.61 x10^3/uL (0.2-0.8); MONOCYTES % (AUTO) 4 % (2-9); NEUTROPHILS % (AUTO) 78 % (42-75); PLATELET COUNT 185 x10^3/uL (130-400); RED BLOOD COUNT 3.58 x10^6/uL (3.82-5.3); RED CELL DISTRIBUTION WIDTH 13.6 % (9.6-15.2)
[2017-09-10 06:40] LABS: INTERNATIONAL NORMALIZED RATIO 1.8 (0.93-1.1); PROTHROMBIN TIME 18.3 Seconds (9.6-11.5)
[2017-09-10 07:40] VITALS: BP 100/68
[2017-09-10] MEDS: DOXYCYCLINE 100MG TABLET PO SCH ×2 (09:31→21:24)
[2017-09-10] MEDS: SPIRONOLACTONE 100 MG HOMEMEDPO SCH ×2 (09:34→17:23)
[2017-09-10] MEDS: TEMPLATE NON-FORMULARY MED. (Tadalafil** (Adcirca**) 40 MG) HOMEMEDPO SCH (09:35)
[2017-09-10] MEDS: MACITENTAN HOMEMEDPO SCH (09:36)
[2017-09-10] MEDS: FLUTICASONE FUROATE 100MCG/INH INH SCH (09:36)
[2017-09-10] MEDS: LACTOBACILLUS CHEW TABLET PO SCH ×3 (09:37→21:24)
[2017-09-10] MEDS: OSELTAMIVIR 75 MG CAPSULE PO SCH ×2 (09:46→21:24)
[2017-09-10] MEDS: METOLAZONE 5 MG TABLET PO SCH ×2 (09:46→17:10)
[2017-09-10] MEDS: BUMETANIDE 1 MG TABLET PO SCH ×2 (09:47→17:10)
[2017-09-10] MEDS ORDERED: FLUCONAZOLE 200 MG TABLET PO ONE (12:00)
[2017-09-10] MEDS ORDERED: FUROSEMIDE 20 MG/2 ML IV ONE (12:00)
[2017-09-10] MEDS ORDERED: FLUCONAZOLE 100 MG TABLET ONE (12:38)
[2017-09-10 13:21] VITALS: BP 102/68
[2017-09-10] MEDS ORDERED: FLUCONAZOLE 100 MG TABLET PO ONE (13:30)
[2017-09-10] MEDS: NYSTATIN 500,000 UNITS/5 ML UDC PO SCH (17:08)
[2017-09-10] MEDS: LEXAPRO 20 MG HOMEMEDPO SCH (17:23)
[2017-09-10] MEDS: LORazepam 0.5MG TABLET PO PRN (17:30)
[2017-09-10 19:18] VITALS: BP 93/62
[2017-09-10] MEDS: TIZANIDINE 2MG TABLET PO SCH (21:24)
[2017-09-10] MEDS: ZOLPIDEM 5MG TABLET PO PRN (21:24)
[2017-09-11] MEDS: TREPROSTINIL DIOLAMINE 2.5 MG PO SCH ×3 (00:30→17:34)
[2017-09-11] MEDS: TREPROSTINIL DIOLAMINE PO SCH ×3 (00:30→17:34)
[2017-09-11] MEDS ORDERED: WARFARIN 7.5 MG TABLET PO-COUM ONE ×2 (00:30→18:00)
[2017-09-11 01:30] VITALS: BP 114/79
[2017-09-11] MEDS: NYSTATIN 500,000 UNITS/5 ML UDC PO SCH ×5 (01:31→20:50)
[2017-09-11] MEDS: POTASSIUM CHLORIDE 20 MEQ TAB.ER.PRT PO SCH ×3 (01:32→17:30)
[2017-09-11] MEDS: ACETAMINOPHEN 325 MG TABLET PO PRN ×4 (01:33→21:58)
[2017-09-11] MEDS: HYDROcodone/APAP 5/325 TABLET PO PRN ×2 (01:49→14:08)
[2017-09-11] MEDS: LINEZOLID PMX 600MG/300ML 300 ML IV SCH ×2 (02:11→14:11)
[2017-09-11] MEDS: VANCOMYCIN 50 MG/ML ORAL SUSP PO SCH ×3 (04:54→17:29)
[2017-09-11 05:01] VITALS: BP 112/68
[2017-09-11 05:57] LABS: INTERNATIONAL NORMALIZED RATIO 1.76 (0.93-1.1); PROTHROMBIN TIME 17.9 Seconds (9.6-11.5)
[2017-09-11 07:00] VITALS: BP 109/72
[2017-09-11] MEDS: SPIRONOLACTONE 100 MG HOMEMEDPO SCH ×2 (09:09→17:35)
[2017-09-11] MEDS: MACITENTAN HOMEMEDPO SCH (09:10)
[2017-09-11] MEDS: TEMPLATE NON-FORMULARY MED. (Tadalafil** (Adcirca**) 40 MG) HOMEMEDPO SCH (09:11)
[2017-09-11] MEDS: FLUTICASONE FUROATE 100MCG/INH INH SCH (09:12)
[2017-09-11] MEDS: DOXYCYCLINE 100MG TABLET PO SCH ×2 (09:13→20:48)
[2017-09-11] MEDS: LACTOBACILLUS CHEW TABLET PO SCH ×3 (09:14→20:48)
[2017-09-11] MEDS: BUMETANIDE 1 MG TABLET PO SCH ×2 (09:27→17:35)
[2017-09-11] MEDS: METOLAZONE 5 MG TABLET PO SCH ×2 (09:28→17:29)
[2017-09-11] MEDS: OSELTAMIVIR 75 MG CAPSULE PO SCH ×2 (09:28→20:48)
[2017-09-11] MEDS: GUAIFENESIN/DM 100-10MG, 5ML UDC PO PRN (10:21)
[2017-09-11 11:28] LABS: BASOPHILS # (AUTO) 0.04 x10^3/uL (0-0.1); BASOPHILS % (AUTO) 0 % (0-1); EOSINOPHILS # (AUTO) 0.24 x10^3/uL (0-0.4); EOSINOPHILS % (AUTO) 2 % (1-7); LYMPHOCYTES # (AUTO) 1.78 x10^3/uL (1-3.4); LYMPHOCYTES % (AUTO) 14 % (22-44); MD NO; MEAN CORPUSCULAR HEMOGLOBIN 30.7 pg (27.0-34.8); MEAN CORPUSCULAR HGB CONC 33.5 g/dL (32.4-35.8); MEAN CORPUSCULAR VOLUME 91.4 fL (80-100); MEAN PLATELET VOLUME 8.6 fL (7.4-10.4); MONOCYTES # (AUTO) 0.73 x10^3/uL (0.2-0.8); MONOCYTES % (AUTO) 6 % (2-9); NEUTROPHILS # (AUTO) 10.41 x10^3/uL (1.8-6.8); NEUTROPHILS % (AUTO) 79 % (42-75); PLATELET COUNT 234 x10^3/uL (130-400); RED BLOOD COUNT 3.64 x10^6/uL (3.82-5.3)
[2017-09-11 11:36] LABS: ALBUMIN 2.9 g/dL (3.4-5.0); ANION GAP 7 mmol/L (5-15); CALCIUM 8.7 mg/dL (8.5-10.1); CHLORIDE 99 mmol/L (98-107); CREATININE 1.36 mg/dL (0.55-1.02)
[2017-09-11] MEDS ORDERED: FUROSEMIDE 20 MG/2 ML IV ONE ×2 (12:00)
[2017-09-11] MEDS: LOPERAMIDE 2 MG CAPSULE PO PRN (12:11)
[2017-09-11] MEDS ORDERED: FLUCONAZOLE 100 MG TABLET ONE (12:44)
[2017-09-11] MEDS ORDERED: FLUCONAZOLE 200 MG TABLET PO SCH (13:00)
[2017-09-11 14:11] VITALS: BP 101/69
[2017-09-11] MEDS: LEXAPRO 20 MG HOMEMEDPO SCH (17:33)
[2017-09-11 18:56] VITALS: BP 113/69
[2017-09-11] MEDS: TIZANIDINE 2MG TABLET PO SCH (20:48)
[2017-09-11] MEDS: ZOLPIDEM 5MG TABLET PO PRN (21:58)
[2017-09-12] MEDS: TREPROSTINIL DIOLAMINE 2.5 MG PO SCH ×2 (00:30→09:57)
[2017-09-12] MEDS: TREPROSTINIL DIOLAMINE PO SCH ×2 (00:30→09:57)
[2017-09-12] MEDS: POTASSIUM CHLORIDE 20 MEQ TAB.ER.PRT PO SCH ×2 (00:41→09:56)
[2017-09-12] MEDS: VANCOMYCIN 50 MG/ML ORAL SUSP PO SCH ×3 (00:42→11:24)
[2017-09-12] MEDS: LINEZOLID PMX 600MG/300ML 300 ML IV SCH ×2 (02:44→14:30)
[2017-09-12 02:46] VITALS: BP 107/71
[2017-09-12 05:21] LABS: INTERNATIONAL NORMALIZED RATIO 2.79 (0.93-1.1); PROTHROMBIN TIME 28.2 Seconds (9.6-11.5)
[2017-09-12] MEDS: NYSTATIN 500,000 UNITS/5 ML UDC PO SCH ×2 (05:38→11:24)
[2017-09-12] MEDS: HYDROcodone/APAP 5/325 TABLET PO PRN ×2 (05:47→14:22)
[2017-09-12 06:59] VITALS: BP 108/70
[2017-09-12] MEDS ORDERED: FLUCONAZOLE 200 MG TABLET PO SCH (09:00)
[2017-09-12] MEDS ORDERED: FLUCONAZOLE 100 MG TABLET ONE (09:45)
[2017-09-12 09:52] VITALS: BP 105/68
[2017-09-12] MEDS: METOLAZONE 5 MG TABLET PO SCH (09:55)
[2017-09-12] MEDS: SPIRONOLACTONE 100 MG HOMEMEDPO SCH (09:56)
[2017-09-12] MEDS: LACTOBACILLUS CHEW TABLET PO SCH (09:56)
[2017-09-12] MEDS: DOXYCYCLINE 100MG TABLET PO SCH (09:56)
[2017-09-12] MEDS: TEMPLATE NON-FORMULARY MED. (Tadalafil** (Adcirca**) 40 MG) HOMEMEDPO SCH (09:57)
[2017-09-12] MEDS: MACITENTAN HOMEMEDPO SCH (09:57)
[2017-09-12] MEDS: BUMETANIDE 1 MG TABLET PO SCH (09:57)
[2017-09-12] MEDS: FLUTICASONE FUROATE 100MCG/INH INH SCH (10:27)
[2017-09-12] MEDS: OSELTAMIVIR 75 MG CAPSULE PO SCH (10:27)
[2017-09-12] MEDS: HEMORRHOIDAL OINT, 28 GM (PREP H) RC PRN (10:29)
[2017-09-12] MEDS ORDERED: DOXY100T PO (11:44)
[2017-09-12] MEDS ORDERED: CEFD300C37 PO (11:44)
[2017-09-12] MEDS ORDERED: FLUC200T PO ×2 (11:44→11:46)
[2017-09-12 11:48] LABS: CLOSTRIDIUM DIFFICILE ANTIGEN NEGATIVE; CLOSTRIDIUM DIFFICILE TOXIN NEGATIVE (Negative)
[2017-09-12] MEDS: LOPERAMIDE 2 MG CAPSULE PO PRN (12:03)
[2017-09-12 12:17] LABS: BASOPHILS # (AUTO) 0.05 x10^3/uL (0-0.1); BASOPHILS % (AUTO) 1 % (0-1); EOSINOPHILS # (AUTO) 0.26 x10^3/uL (0-0.4); EOSINOPHILS % (AUTO) 3 % (1-7); LYMPHOCYTES # (AUTO) 2.28 x10^3/uL (1-3.4); LYMPHOCYTES % (AUTO) 25 % (22-44); MD NO; MEAN CORPUSCULAR HGB CONC 33.5 g/dL (32.4-35.8); MEAN CORPUSCULAR VOLUME 92.6 fL (80-100); MEAN PLATELET VOLUME 8.9 fL (7.4-10.4); MONOCYTES % (AUTO) 5 % (2-9); NEUTROPHILS % (AUTO) 67 % (42-75); PLATELET COUNT 207 x10^3/uL (130-400); RED CELL DISTRIBUTION WIDTH 13.5 % (9.6-15.2)
[2017-09-12 12:35] LABS: ALBUMIN 2.8 g/dL (3.4-5.0); ANION GAP 9 mmol/L (5-15); CALCIUM 8.5 mg/dL (8.5-10.1); CHLORIDE 100 mmol/L (98-107)
[2017-09-12 12:39] LABS: ALANINE AMINOTRANSFERASE 24 U/L (12-78); ALKALINE PHOSPHATASE 57 U/L (45-117); BILIRUBIN,TOTAL 0.4 mg/dL (0.2-1.0); CREATININE 1.32 mg/dL (0.55-1.02); TOTAL PROTEIN 7.1 g/dL (6.4-8.2)
[2017-09-12 13:47] VITALS: BP 108/68
[2017-09-12] MEDS ORDERED: WARFARIN 2.5 MG TABLET PO-COUM ONE (18:00)
[2017-09-13] MEDS ORDERED: WARFARIN 2.5 MG TABLET PO-COUM ONE (00:30)
== END 2017-09-12 16:49 | disposition home or self-care (01) | DRG 871 ==
LOC: ED 12:09 → EDIP 13:29 → 3NE 14:33 → 4EST 19:01 → CCU 09-07 05:46 → 5SO 09-08 19:25
PROVIDERS: ADMIT Internal Medicine Pulmonary Disease; ATTEND Internal Medicine
PROC: 5A09357 Assistance with Respiratory Ventilation, Less than 24 Consecutive Hours, Continuous Positive Airway Pressure (ICD-10-PCS; principal; 2017-09-05)
PROC: 5A09357 Assistance with Respiratory Ventilation, Less than 24 Consecutive Hours, Continuous Positive Airway Pressure (ICD-10-PCS; 2017-09-06)
PROC: 5A09357 Assistance with Respiratory Ventilation, Less than 24 Consecutive Hours, Continuous Positive Airway Pressure (ICD-10-PCS; 2017-09-09)
PROC: 5A09357 Assistance with Respiratory Ventilation, Less than 24 Consecutive Hours, Continuous Positive Airway Pressure (ICD-10-PCS; 2017-09-10)
PROC: 5A09357 Assistance with Respiratory Ventilation, Less than 24 Consecutive Hours, Continuous Positive Airway Pressure (ICD-10-PCS; 2017-09-12)
DX: A41.9 Sepsis, unspecified organism (principal); J96.21 Acute and chronic respiratory failure with hypoxia; J11.08 Influenza due to unidentified influenza virus with specified pneumonia; N17.9 Acute kidney failure, unspecified; I11.0 Hypertensive heart disease with heart failure; D68.69 Other thrombophilia; I50.32 Chronic diastolic (congestive) heart failure; I27.20 Pulmonary hypertension, unspecified; I48.2 Chronic atrial fibrillation; J44.0 Chronic obstructive pulmonary disease with (acute) lower respiratory infection; R91.1 Solitary pulmonary nodule; R19.7 Diarrhea, unspecified; Z79.01 Long term (current) use of anticoagulants; Z99.81 Dependence on supplemental oxygen
CPT/HCPCS: 36415; 71045; 71046; 71275; 76700; 80048; 80053; 82040; 82803; 82962; 83605; 83735; 84100; 84132; 84443; 84484; 85025; 85610; 87040; 87070; 87081; 87205; 87324; 93005; 94640; 96361; 96365; 96375; J0456; J0696; J1885; J2020; J2405; J3370; J7620; Q0162; Q9967; J0780; J1200; J1940; J2930; J3475; J7030; J7050

== ENCOUNTER 2017-09-15 09:56 | Emergency (ER) | payer MEDICARE, MEDICAID ==
[~2017-09-15] VITALS: Ht 170.2 cm; Wt 87.2 kg
[~2017-09-15 09:56] MED LIST changes: +CEFD300C37 PO; +DOXY100T PO; +ESCI20TA10 PO; +FLUC200T PO; +FLUT50DI INH; +LORA0.5T PO; +MACI10TA PO; +MELA1TAB22 PO; +OSEL75CA PO; +TREP1TAB PO; +TREP2.5T PO
[2017-09-15] MEDS ORDERED: ONDANSETRON ODT 4 MG PO ONE (10:30)
[2017-09-15] MEDS ORDERED: SODIUM CHLORIDE FLUSH 10ML SYR IVF ONE (10:30)
[2017-09-15 10:55] LABS: BASOPHILS % (AUTO) 0 % (0-1); EOSINOPHILS # (AUTO) 0.07 x10^3/uL (0-0.4); EOSINOPHILS % (AUTO) 0 % (1-7); LYMPHOCYTES # (AUTO) 1.81 x10^3/uL (1-3.4); LYMPHOCYTES % (AUTO) 10 % (22-44); MD NO; MEAN CORPUSCULAR HEMOGLOBIN 31.1 pg (27.0-34.8); MEAN CORPUSCULAR HGB CONC 33.8 g/dL (32.4-35.8); MEAN CORPUSCULAR VOLUME 91.8 fL (80-100); MEAN PLATELET VOLUME 8.7 fL (7.4-10.4); MONOCYTES # (AUTO) 0.65 x10^3/uL (0.2-0.8); MONOCYTES % (AUTO) 4 % (2-9); NEUTROPHILS # (AUTO) 15.28 x10^3/uL (1.8-6.8); NEUTROPHILS % (AUTO) 86 % (42-75); PLATELET COUNT 224 x10^3/uL (130-400); RED BLOOD COUNT 3.51 x10^6/uL (3.82-5.3); RED CELL DISTRIBUTION WIDTH 13.9 % (9.6-15.2)
[2017-09-15 11:03] LABS: ALBUMIN 3.5 g/dL (3.4-5.0); ANION GAP 9 mmol/L (5-15); CHLORIDE 106 mmol/L (98-107); CREATININE 1.39 mg/dL (0.55-1.02)
[2017-09-15 11:11] LABS: INTERNATIONAL NORMALIZED RATIO 6.15 (0.93-1.1); PROTHROMBIN TIME 61.1 Seconds (9.6-11.5)
[2017-09-15] MEDS ORDERED: ONDANSETRON ODT 4 MG ONE (11:55)
[2017-09-15] MEDS ORDERED: MORPHINE SULFATE 4 MG/ML, 1ML ONE ×2 (11:56→14:14)
[2017-09-15] MEDS: MORPHINE SULFATE 4 MG/ML, 1ML IVPush PRN ×2 (12:20→14:17)
[2017-09-15 12:37] LABS: CULTURE INDICATED? NO; MICROSCOPIC NOT IND
[2017-09-15] MEDS ORDERED: OMNIPAQUE 350 MG/ML, 100ML BOTTLE ONE (13:32)
[2017-09-15] MEDS ORDERED: PHYTONADIONE 5 MG TABLET PO ONE (15:00)
[2017-09-15 15:45] VITALS: BP 123/77
== END 2017-09-15 15:47 | disposition home or self-care (01) ==
LOC: ED 13:31
DX: S30.1XXA Contusion of abdominal wall, initial encounter (principal); R79.1 Abnormal coagulation profile; J18.9 Pneumonia, unspecified organism; I48.91 Unspecified atrial fibrillation; I27.20 Pulmonary hypertension, unspecified; J44.9 Chronic obstructive pulmonary disease, unspecified; I50.9 Heart failure, unspecified; Y93.89 Activity, other specified; Y92.89 Other specified places as the place of occurrence of the external cause; Y99.2 Volunteer activity; Z79.01 Long term (current) use of anticoagulants; X58.XXXA Exposure to other specified factors, initial encounter
CPT/HCPCS: 36415; 74177; 80048; 81003; 82040; 85025; 85610; 96374; 96376; 99285; Q0162; Q9967

== ENCOUNTER → 2017-10-24 | Outpatient (CLI) | payer MEDICARE, MEDICAID ==
[2017-10-24 12:45] LABS: INTERNATIONAL NORMALIZED RATIO 1.27 (0.93-1.1); PROTHROMBIN TIME 13.1 Seconds (9.6-11.5)
== END | disposition home or self-care (01) ==
LOC: CFH 09:00
PROVIDERS: ATTEND Internal Medicine Cardiovascular Disease
DX: I36.1 Nonrheumatic tricuspid (valve) insufficiency (principal)
CPT/HCPCS: 36415; 85610

== ENCOUNTER → 2018-02-05 | Outpatient (CLI) | payer MEDICARE, MEDICAID ==
[2018-02-05 16:05] LABS: INTERNATIONAL NORMALIZED RATIO 1.17 (0.93-1.1); PROTHROMBIN TIME 12.1 Seconds (9.6-11.5)
== END | disposition home or self-care (01) ==
LOC: CFH 12:14
PROVIDERS: ATTEND Nurse Practitioner
DX: R91.8 Other nonspecific abnormal finding of lung field (principal); J44.9 Chronic obstructive pulmonary disease, unspecified; I50.9 Heart failure, unspecified
CPT/HCPCS: 36415; 71250; 85610

== ENCOUNTER → 2018-02-16 | Outpatient (CLI) | payer MEDICARE, MEDICAID ==
[2018-02-16 16:03] LABS: % IRON SATURATION 19 % (20-55); ANION GAP 9 mmol/L (5-15); CALCIUM 9.3 mg/dL (8.5-10.1); CHLORIDE 108 mmol/L (98-107); CREATININE 1.57 mg/dL (0.55-1.02); IRON LEVEL 88 mcg/dL (50-170); TOTAL IRON BINDING CAPACITY 452 mcg/dL (250-450)
== END | disposition home or self-care (01) ==
LOC: CFH 13:50
PROVIDERS: ATTEND Internal Medicine Cardiovascular Disease
DX: I27.21 Secondary pulmonary arterial hypertension (principal); I36.1 Nonrheumatic tricuspid (valve) insufficiency; I50.20 Unspecified systolic (congestive) heart failure; G47.30 Sleep apnea, unspecified; R06.02 Shortness of breath
CPT/HCPCS: 36415; 80048; 83540; 83550

== ENCOUNTER → 2018-08-04 | Outpatient (CLI) | payer MEDICARE, MEDICAID ==
[2018-08-04 12:51] LABS: INTERNATIONAL NORMALIZED RATIO 1.35 (0.93-1.1)
[2018-08-04 13:09] LABS: CHLORIDE 102 mmol/L (98-107)
[2018-08-04 13:20] LABS: ANION GAP 9 mmol/L (5-15); CALCIUM 8.7 mg/dL (8.5-10.1); CREATININE 1.52 mg/dL (0.55-1.02)
== END | disposition home or self-care (01) ==
LOC: CFH 09:08
PROVIDERS: ATTEND Internal Medicine Cardiovascular Disease
DX: I08.1 Rheumatic disorders of both mitral and tricuspid valves (principal); I48.91 Unspecified atrial fibrillation; I27.0 Primary pulmonary hypertension; Z79.01 Long term (current) use of anticoagulants
CPT/HCPCS: 36415; 80048; 83880; 85610; 93306

== ENCOUNTER 2018-09-30 11:57 | Outpatient (CLI) | payer MEDICARE, MEDICAID ==
[2018-09-30 15:40] LABS: ALBUMIN 3.9 g/dL (3.4-5.0); ANION GAP 9 mmol/L (5-15); CALCIUM 8.8 mg/dL (8.5-10.1); CHLORIDE 99 mmol/L (98-107)
[2018-09-30 15:45] LABS: ALANINE AMINOTRANSFERASE 40 U/L (12-78); ALKALINE PHOSPHATASE 85 U/L (45-117); BILIRUBIN,TOTAL 0.4 mg/dL (0.2-1.0); CREATININE 1.51 mg/dL (0.55-1.02); TOTAL PROTEIN 7.6 g/dL (6.4-8.2)
[2018-09-30 15:47] LABS: INTERNATIONAL NORMALIZED RATIO 1.15 (0.93-1.1)
[2018-10-13] MEDS ORDERED: WARF-36 PO (16:02)
[2018-10-13] MEDS ORDERED: CHOL100011 PO (16:02)
[2018-10-13] MEDS ORDERED: DIPH1TAB PO (16:05)
[2018-10-13] MEDS ORDERED: MELA1TAB22 PO (16:05)
[2018-10-13] MEDS ORDERED: MONT10TA9 PO (16:05)
[2018-10-13] MEDS ORDERED: LACT1TAB13 PO (16:05)
[2018-10-13] MEDS ORDERED: FURO20TA3 PO (16:05)
[2018-10-13] MEDS ORDERED: BOSE125T PO (16:06)
[2018-10-13] MEDS ORDERED: SPIR50TA PO (17:31)
[2018-10-14] MEDS ORDERED: FLEC100T PO (02:06)
[2018-10-14] MEDS ORDERED: WARF5TAB PO (16:57)
== END 2018-09-30 23:59 | disposition home or self-care (01) ==
LOC: CFH 11:57
PROVIDERS: ATTEND Internal Medicine Cardiovascular Disease
DX: E78.6 Lipoprotein deficiency (principal); B97.89 Other viral agents as the cause of diseases classified elsewhere; D68.69 Other thrombophilia; E66.9 Obesity, unspecified; G47.00 Insomnia, unspecified; G47.30 Sleep apnea, unspecified; G47.31 Primary central sleep apnea; G47.33 Obstructive sleep apnea (adult) (pediatric); F32.9 Major depressive disorder, single episode, unspecified; F41.9 Anxiety disorder, unspecified; R06.02 Shortness of breath; Z79.899 Other long term (current) drug therapy
CPT/HCPCS: 36415; 80053; 83880; 85610

== ENCOUNTER → 2018-10-13 | Outpatient (CLI) | payer MEDICARE, MEDICAID ==
[~2018-10-13] MED LIST changes: +CHOL100011 PO; +DIPH1TAB PO; +FLEC100T PO; +FURO20TA3 PO; +LACT1TAB13 PO; +MONT10TA9 PO; +SPIR50TA PO; +TADALAFIL HOMEMEDPO; +WARF-36 PO; +WARF5TAB PO; +[UNRECOGNIZED DRUG - OTHER] PO
== END | disposition home or self-care (01) ==
LOC: CFH 09:49
PROVIDERS: ATTEND Nurse Practitioner
DX: R06.02 Shortness of breath (principal); I51.7 Cardiomegaly; R63.5 Abnormal weight gain
CPT/HCPCS: 71046

== ENCOUNTER 2018-12-14 14:11 | Inpatient (IN) | payer MEDICAID, MEDICARE ==
[~2018-12-14] VITALS: Ht 170.2 cm; Wt 84.0 kg
[2018-12-15 19:02] VITALS: BP 94/60
== END 2018-12-15 20:59 | disposition home or self-care (01) | DRG 183 ==
LOC: ED 17:31 → EDIP 17:44 → 4WST 19:07
PROVIDERS: ADMIT Internal Medicine; ATTEND Internal Medicine
DX: S22.41XA Multiple fractures of ribs, right side, initial encounter for closed fracture (principal); J96.20 Acute and chronic respiratory failure, unspecified whether with hypoxia or hypercapnia; I50.30 Unspecified diastolic (congestive) heart failure; D68.69 Other thrombophilia; I13.0 Hypertensive heart and chronic kidney disease with heart failure and stage 1 through stage 4 chronic kidney disease, or unspecified chronic kidney disease; F32.9 Major depressive disorder, single episode, unspecified; I27.29 Other secondary pulmonary hypertension; I27.81 Cor pulmonale (chronic); I48.91 Unspecified atrial fibrillation; J44.9 Chronic obstructive pulmonary disease, unspecified; R91.1 Solitary pulmonary nodule; Y99.8 Other external cause status; N18.3 Chronic kidney disease, stage 3 (moderate); W18.39XA Other fall on same level, initial encounter; R32 Unspecified urinary incontinence; Z79.01 Long term (current) use of anticoagulants; Z82.5 Family history of asthma and other chronic lower respiratory diseases; Z88.8 Allergy status to other drugs, medicaments and biological substances; Z87.01 Personal history of pneumonia (recurrent); Y93.89 Activity, other specified; Y92.89 Other specified places as the place of occurrence of the external cause
CPT/HCPCS: 36415; 70450; 71045; 72125; 80048; 80053; 80307; 81001; 82962; 84443; 85025; 85610; 85730; 93005; 93306; 99285; G0378; Q0162

== ENCOUNTER → 2019-05-10 | Outpatient (CLI) | payer MEDICARE, MEDICAID ==
[~2019-05-10] MED LIST changes: -BUME2TAB PO; +BUME2TAB3 PO; +FLUT100B INH; -OSEL75CA PO; +OSEL75CA26 PO; +WARF7.5T46 PO; +[UNRECOGNIZED DRUG - OTHER] PO
[2019-05-10 12:58] LABS: INTERNATIONAL NORMALIZED RATIO 2.45 (0.93-1.1); PROTHROMBIN TIME 24.9 Seconds (9.6-11.5)
[2019-05-10 13:12] LABS: ALBUMIN 4.2 g/dL (3.4-5.0); ANION GAP 11 mmol/L (5-15); CALCIUM 9.3 mg/dL (8.5-10.1); CHLORIDE 99 mmol/L (98-107)
[2019-05-10 13:18] LABS: ALANINE AMINOTRANSFERASE 41 U/L (12-78); ALKALINE PHOSPHATASE 81 U/L (45-117); BILIRUBIN,TOTAL 0.5 mg/dL (0.2-1.0); CREATININE 1.59 mg/dL (0.55-1.02); TOTAL PROTEIN 8.2 g/dL (6.4-8.2)
== END | disposition home or self-care (01) ==
LOC: CFH 09:58
PROVIDERS: ATTEND Internal Medicine Cardiovascular Disease
DX: I27.0 Primary pulmonary hypertension (principal); M25.511 Pain in right shoulder; R06.02 Shortness of breath; G47.33 Obstructive sleep apnea (adult) (pediatric); Z79.01 Long term (current) use of anticoagulants
CPT/HCPCS: 36415; 80053; 83880; 85610

== ENCOUNTER 2019-06-03 14:42 | Inpatient (IN) | payer MEDICARE, MEDICAID ==
[~2019-06-03] VITALS: Ht 157.5 cm; Wt 84.3 kg
--- NOTE | 2019-06-03 14:52 | NUR ---
SOFIA RN: PT KEYA AL FOR ALOC. DAUGHTER REPORTS PT CALLED HER TODAY DRIVING LOST. PT IS A&O X4 AT THIS TIME. VS STABLE. DAUGHTER AT BEDSIDE. CALL LIGHT IN PLACE. WILL CONTINUE TO MONITOR WHILE PRIMARY RN IS ON BREAK.
--- NOTE | 2019-06-03 14:59 | NUR ---
SOFIA RN: PT DENIES ANY MEDICAL COMPLAINTS. DAUGHTER REPORTS PT IS ON THE LUNG TRANSPLANT LIST. PT WEARS 2L OF OXYGEN AT HOME.
--- NOTE | 2019-06-03 15:23 | NUR ---
REPORT FROM POLA.
[2019-06-03] MEDS ORDERED: SODIUM CHLORIDE FLUSH 10ML SYR IVF ONE (16:00)
[2019-06-03 16:17] LABS: BASOPHILS # (AUTO) 0.03 x10^3/uL (0-0.1); BASOPHILS % (AUTO) 0 % (0-1); EOSINOPHILS # (AUTO) 0.12 x10^3/uL (0-0.4); EOSINOPHILS % (AUTO) 1 % (1-7); LYMPHOCYTES % (AUTO) 15 % (22-44); MD NO; MEAN CORPUSCULAR HEMOGLOBIN 31.3 pg (27.0-34.8); MEAN CORPUSCULAR HGB CONC 33.3 g/dL (32.4-35.8); MEAN PLATELET VOLUME 9.5 fL (7.4-10.4); MONOCYTES # (AUTO) 0.73 x10^3/uL (0.2-0.8); MONOCYTES % (AUTO) 6 % (2-9); NEUTROPHILS # (AUTO) 9.22 x10^3/uL (1.8-6.8); NEUTROPHILS % (AUTO) 78 % (42-75); PLATELET COUNT 216 x10^3/uL (130-400); RED BLOOD COUNT 5.74 x10^6/uL (3.82-5.3); RED CELL DISTRIBUTION WIDTH 14.9 % (9.6-15.2)
[2019-06-03] MEDS ORDERED: METO5TAB5 PO (16:18)
[2019-06-03] MEDS ORDERED: FURO40TA6 PO (16:18)
--- NOTE | 2019-06-03 16:30 | NUR ---
PT RESTING. IV ESTABLISHED, BACK FROM IMAGING. FAMILY AT BEDSIDE.
[2019-06-03 17:07] LABS: MICROSCOPIC AUTO
[2019-06-03 17:10] LABS: AMPHETAMINE SCREEN, URINE Negative (Negative); BARBITURATE SCREEN, URINE Negative (Negative); BENZODIAZEPINE SCREEN, URINE Negative (Negative); CANNABINOID SCREEN, URINE Negative (Negative); COCAINE SCREEN, URINE Negative (Negative); CULTURE INDICATED? NO; METHADONE SCREEN, URINE Negative (Negative); OPIATE SCREEN, URINE Negative (Negative)
--- NOTE | 2019-06-03 17:30 | NUR ---
PT RESTING, PLAYING ON PHONE. NO NEEDS AT THIS TIME.
[2019-06-03 18:26] LABS: ALANINE AMINOTRANSFERASE 42 U/L (12-78); ALBUMIN 4.4 g/dL (3.4-5.0); CALCIUM 9.3 mg/dL (8.5-10.1); CREATININE 2.08 mg/dL (0.55-1.02)
[2019-06-03 18:29] LABS: ALKALINE PHOSPHATASE 78 U/L (45-117); BILIRUBIN,TOTAL 0.7 mg/dL (0.2-1.0); SALICYLATE LEVEL < 1.7 mg/dL (2.8-20.0); TOTAL PROTEIN 8.4 g/dL (6.4-8.2); TROPONIN I < 0.015 ng/mL (0.000-0.045)
[2019-06-03 18:36] LABS: ANION GAP 13 mmol/L (5-15); CHLORIDE 102 mmol/L (98-107)
[2019-06-03] MEDS ORDERED: SODIUM CHLORIDE FLUSH 10ML SYR IVF PRN (19:30)
--- NOTE | 2019-06-03 19:50 | NUR ---
report to josé rosen ready for transfer
[2019-06-03 19:53] LABS: INTERNATIONAL NORMALIZED RATIO 6.53 (0.93-1.1); PROTHROMBIN TIME 63.8 Seconds (9.6-11.5)
--- NOTE | 2019-06-03 19:54 | NUR ---
CRITICAL LAB VALUE: PTT 63.8, INR 6.53. AWARE.
--- NOTE | 2019-06-03 20:07 | NUR ---
ROSALIA CHRISTIANSON AT BEDSIDE DISCUSING POC.
[2019-06-03] MEDS ORDERED: PHARMACY MAY ADJ FOR RENAL FX MC PRN (21:30)
[2019-06-03] MEDS ORDERED: LORazepam 0.5MG TABLET PO PRN (21:30)
[2019-06-03] MEDS: BUMETANIDE 1 MG TABLET PO SCH (22:06)
[2019-06-03] MEDS: FLECAINIDE 100MG TABLET PO SCH (22:06)
[2019-06-03] MEDS: SPIRONOLACTONE 100 MG TABLET PO SCH (22:06)
[2019-06-03] MEDS ORDERED: HOLD WARFARIN MC PRN (22:30)
[2019-06-03] MEDS: MONTELUKAST 10 MG TABLET PO SCH (23:33)
[2019-06-03] MEDS: [UNRECOGNIZED DRUG - OTHER] PO SCH (23:33)
[2019-06-03] MEDS: (Macitentan** (Opsumit**) 10 MG) PO SCH (23:33)
[2019-06-04 01:00] VITALS: BP 114/67
[2019-06-04] MEDS ORDERED: BUDESONIDE 0.5 MG/2 ML INHA NPPB PRN (01:30)
[2019-06-04] MEDS: TADALAFIL 40 MG HOMEMEDPO SCH (05:34)
[2019-06-04 06:13] LABS: BASOPHILS # (AUTO) 0.06 x10^3/uL (0-0.1); BASOPHILS % (AUTO) 1 % (0-1); EOSINOPHILS # (AUTO) 0.01 x10^3/uL (0-0.4); EOSINOPHILS % (AUTO) 0 % (1-7); LYMPHOCYTES # (AUTO) 1.59 x10^3/uL (1-3.4); LYMPHOCYTES % (AUTO) 17 % (22-44); MD NO; MEAN PLATELET VOLUME 9.3 fL (7.4-10.4); MONOCYTES # (AUTO) 0.83 x10^3/uL (0.2-0.8); MONOCYTES % (AUTO) 9 % (2-9); NEUTROPHILS # (AUTO) 7.11 x10^3/uL (1.8-6.8); NEUTROPHILS % (AUTO) 74 % (42-75); PLATELET COUNT 187 x10^3/uL (130-400); RED BLOOD COUNT 5.57 x10^6/uL (3.82-5.3); RED CELL DISTRIBUTION WIDTH 14.8 % (9.6-15.2)
[2019-06-04 06:26] LABS: INTERNATIONAL NORMALIZED RATIO 5.65 (0.93-1.1); PROTHROMBIN TIME 55.5 Seconds (9.6-11.5)
[2019-06-04 06:29] LABS: ALBUMIN 4.2 g/dL (3.4-5.0); CALCIUM 9.5 mg/dL (8.5-10.1); CHLORIDE 97 mmol/L (98-107)
[2019-06-04 06:35] LABS: ALANINE AMINOTRANSFERASE 33 U/L (12-78); ALKALINE PHOSPHATASE 73 U/L (45-117); ANION GAP 10 mmol/L (5-15); BILIRUBIN,TOTAL 0.9 mg/dL (0.2-1.0); CREATININE 1.95 mg/dL (0.55-1.02)
[2019-06-04] MEDS: [UNRECOGNIZED DRUG - OTHER] PO SCH ×3 (07:00→23:00)
[2019-06-04 07:24] VITALS: BP 124/81
[2019-06-04] MEDS: FLECAINIDE 100MG TABLET PO SCH ×2 (08:03→21:00)
[2019-06-04] MEDS: METOLAZONE 5 MG TABLET PO SCH ×2 (08:03→15:01)
[2019-06-04] MEDS: ESCITALOPRAM 10MG TABLET PO SCH (08:03)
[2019-06-04] MEDS: FUROSEMIDE 40 MG TABLET PO SCH (08:04)
[2019-06-04] MEDS: SPIRONOLACTONE 100 MG TABLET PO SCH ×2 (08:04→21:00)
[2019-06-04] MEDS ORDERED: ESCITALOPRAM 10MG TABLET PO SCH (09:00)
[2019-06-04] MEDS ORDERED: POTASSIUM CHLORIDE 20 MEQ TAB.ER.PRT PO ONE (13:00)
[2019-06-04 14:50] VITALS: BP 125/84
[2019-06-04 19:21] VITALS: BP 118/77
[2019-06-04] MEDS: BUMETANIDE 1 MG TABLET PO SCH (21:00)
[2019-06-04] MEDS: (Macitentan** (Opsumit**) 10 MG) PO SCH (23:00)
[2019-06-04] MEDS: MONTELUKAST 10 MG TABLET PO SCH (23:21)
[2019-06-05 01:22] VITALS: BP 124/82
[2019-06-05 04:58] LABS: INTERNATIONAL NORMALIZED RATIO 3.22 (0.93-1.1); PROTHROMBIN TIME 32.3 Seconds (9.6-11.5)
[2019-06-05 05:01] LABS: ANION GAP 8 mmol/L (5-15); CALCIUM 9.1 mg/dL (8.5-10.1); CHLORIDE 94 mmol/L (98-107); CREATININE 2.01 mg/dL (0.55-1.02)
[2019-06-05] MEDS: TADALAFIL 40 MG HOMEMEDPO SCH (06:00)
[2019-06-05] MEDS: METOLAZONE 5 MG TABLET PO SCH ×2 (06:05→15:12)
[2019-06-05] MEDS: [UNRECOGNIZED DRUG - OTHER] PO SCH ×3 (06:06→22:05)
[2019-06-05 08:58] VITALS: BP 100/66
[2019-06-05] MEDS: SPIRONOLACTONE 100 MG TABLET PO SCH ×2 (09:12→21:06)
[2019-06-05] MEDS: FLECAINIDE 100MG TABLET PO SCH ×2 (09:13→21:06)
[2019-06-05] MEDS: ESCITALOPRAM 10MG TABLET PO SCH (09:13)
[2019-06-05] MEDS ORDERED: POTASSIUM CHLORIDE 20 MEQ TAB.ER.PRT PO ONE (10:00)
[2019-06-05] MEDS: FUROSEMIDE 40 MG TABLET PO SCH (10:03)
[2019-06-05 14:28] VITALS: BP 104/71
[2019-06-05] MEDS: ARIPIPRAZOLE 5 MG TABLET PO SCH (15:07)
[2019-06-05] MEDS ORDERED: WARFARIN 1 MG TABLET PO-COUM ONE (18:00)
[2019-06-05 19:51] VITALS: BP 104/71
[2019-06-05] MEDS: BUMETANIDE 1 MG TABLET PO SCH (21:07)
[2019-06-05] MEDS: (Macitentan** (Opsumit**) 10 MG) PO SCH (22:05)
[2019-06-05] MEDS: MONTELUKAST 10 MG TABLET PO SCH (22:05)
[2019-06-06 03:23] VITALS: BP 97/62
[2019-06-06] MEDS: TADALAFIL 40 MG HOMEMEDPO SCH (06:00)
[2019-06-06] MEDS: [UNRECOGNIZED DRUG - OTHER] PO SCH ×3 (06:06→22:46)
[2019-06-06] MEDS: METOLAZONE 5 MG TABLET PO SCH ×2 (06:06→15:08)
[2019-06-06 06:12] LABS: INTERNATIONAL NORMALIZED RATIO 1.85 (0.93-1.1)
[2019-06-06 06:18] LABS: ANION GAP 12 mmol/L (5-15); CALCIUM 9.4 mg/dL (8.5-10.1); CHLORIDE 90 mmol/L (98-107); CREATININE 2.09 mg/dL (0.55-1.02)
[2019-06-06 07:20] VITALS: BP 97/63
[2019-06-06] MEDS: SODIUM CHLORIDE 0.9% 1,000 ML IV SCH ×2 (08:00→16:00)
[2019-06-06] MEDS: FUROSEMIDE 40 MG TABLET PO SCH (08:46)
[2019-06-06] MEDS: POTASSIUM CHLORIDE 20 MEQ TAB.ER.PRT PO SCH ×2 (08:47→11:37)
[2019-06-06] MEDS: SPIRONOLACTONE 100 MG TABLET PO SCH ×2 (08:47→20:53)
[2019-06-06] MEDS: ARIPIPRAZOLE 5 MG TABLET PO SCH (08:47)
[2019-06-06] MEDS: ESCITALOPRAM 10MG TABLET PO SCH (08:47)
[2019-06-06] MEDS: FLECAINIDE 100MG TABLET PO SCH ×2 (08:48→20:54)
[2019-06-06] MEDS ORDERED: POLYETHYLENE GLYCOL 17 GM PACKET NG ONE (09:00)
[2019-06-06] MEDS: ACETAMINOPHEN 325 MG TABLET PO PRN (14:12)
[2019-06-06 14:55] VITALS: BP 95/60
[2019-06-06] MEDS ORDERED: WARFARIN 2.5 MG TABLET PO-COUM ONE (18:00)
[2019-06-06] MEDS: BUMETANIDE 1 MG TABLET PO SCH (20:53)
[2019-06-06 21:10] VITALS: BP 104/72
[2019-06-06] MEDS: (Macitentan** (Opsumit**) 10 MG) PO SCH (22:46)
[2019-06-06] MEDS: MONTELUKAST 10 MG TABLET PO SCH (22:46)
[2019-06-07 00:44] VITALS: BP 105/67
[2019-06-07] MEDS: SODIUM CHLORIDE 0.9% 1,000 ML IV SCH ×2 (01:39→17:53)
[2019-06-07] MEDS: TADALAFIL 40 MG HOMEMEDPO SCH (05:21)
[2019-06-07 06:09] LABS: BASOPHILS # (AUTO) 0.03 x10^3/uL (0-0.1); BASOPHILS % (AUTO) 0 % (0-1); EOSINOPHILS % (AUTO) 0 % (1-7); LYMPHOCYTES # (AUTO) 1.27 x10^3/uL (1-3.4); LYMPHOCYTES % (AUTO) 14 % (22-44); MD NO; MEAN CORPUSCULAR HEMOGLOBIN 31.1 pg (27.0-34.8); MEAN CORPUSCULAR HGB CONC 33.1 g/dL (32.4-35.8); MEAN CORPUSCULAR VOLUME 94.1 fL (80-100); MEAN PLATELET VOLUME 9.8 fL (7.4-10.4); MONOCYTES # (AUTO) 0.69 x10^3/uL (0.2-0.8); MONOCYTES % (AUTO) 8 % (2-9); NEUTROPHILS # (AUTO) 7.02 x10^3/uL (1.8-6.8); NEUTROPHILS % (AUTO) 78 % (42-75); PLATELET COUNT 191 x10^3/uL (130-400); RED BLOOD COUNT 5.27 x10^6/uL (3.82-5.3); RED CELL DISTRIBUTION WIDTH 14.7 % (9.6-15.2)
[2019-06-07 06:12] LABS: ALBUMIN 3.8 g/dL (3.4-5.0); CALCIUM 9.1 mg/dL (8.5-10.1); CHLORIDE 95 mmol/L (98-107)
[2019-06-07 06:13] LABS: INTERNATIONAL NORMALIZED RATIO 1.5 (0.93-1.1); PROTHROMBIN TIME 15.5 Seconds (9.6-11.5)
[2019-06-07 06:19] LABS: ALANINE AMINOTRANSFERASE 25 U/L (12-78); ALKALINE PHOSPHATASE 64 U/L (45-117); BILIRUBIN,TOTAL 0.8 mg/dL (0.2-1.0); CREATININE 1.52 mg/dL (0.55-1.02); TOTAL PROTEIN 7.3 g/dL (6.4-8.2)
[2019-06-07 06:32] LABS: ANION GAP 11 mmol/L (5-15)
[2019-06-07] MEDS: [UNRECOGNIZED DRUG - OTHER] PO SCH ×3 (07:00→23:00)
[2019-06-07 08:30] VITALS: BP 114/76
[2019-06-07] MEDS: POTASSIUM CHLORIDE 40 MEQ in SODIUM CHLORIDE 0.9% 500 ML IV SCH ×2 (09:32→14:17)
[2019-06-07] MEDS: ENOXAPARIN 80 MG/0.8 ML SQ SCH ×2 (09:35→20:51)
[2019-06-07] MEDS: FUROSEMIDE 40 MG TABLET PO SCH (09:36)
[2019-06-07] MEDS: FLECAINIDE 100MG TABLET PO SCH ×2 (09:36→20:52)
[2019-06-07] MEDS: SPIRONOLACTONE 100 MG TABLET PO SCH ×2 (09:36→20:51)
[2019-06-07] MEDS: ARIPIPRAZOLE 5 MG TABLET PO SCH (09:37)
[2019-06-07] MEDS: ESCITALOPRAM 10MG TABLET PO SCH (09:37)
[2019-06-07] MEDS: METOLAZONE 5 MG TABLET PO SCH ×2 (09:38→15:29)
[2019-06-07] MEDS: ACETAMINOPHEN 325 MG TABLET PO PRN ×2 (12:20→20:57)
[2019-06-07 13:19] VITALS: BP 95/64
[2019-06-07] MEDS ORDERED: WARFARIN 5 MG TABLET PO-COUM ONE (18:00)
[2019-06-07 18:08] LABS: ANION GAP 10 mmol/L (5-15); CALCIUM 8.4 mg/dL (8.5-10.1); CHLORIDE 97 mmol/L (98-107)
[2019-06-07 18:09] LABS: CREATININE 1.54 mg/dL (0.55-1.02)
[2019-06-07] MEDS ORDERED: POTASSIUM CHLORIDE 40 MEQ in SODIUM CHLORIDE 0.9% 500 ML IV ONE (20:00)
[2019-06-07 20:19] VITALS: BP 114/78
[2019-06-07] MEDS: BUMETANIDE 1 MG TABLET PO SCH (20:51)
[2019-06-07] MEDS: (Macitentan** (Opsumit**) 10 MG) PO SCH (23:00)
[2019-06-07] MEDS: MONTELUKAST 10 MG TABLET PO SCH (23:05)
[2019-06-08 01:53] VITALS: BP 99/64
[2019-06-08] MEDS: TADALAFIL 40 MG HOMEMEDPO SCH (05:01)
[2019-06-08] MEDS: SODIUM CHLORIDE 0.9% 1,000 ML IV SCH ×2 (05:01→13:30)
[2019-06-08 06:13] LABS: INTERNATIONAL NORMALIZED RATIO 1.49 (0.93-1.1); PROTHROMBIN TIME 15.4 Seconds (9.6-11.5)
[2019-06-08 06:15] LABS: ANION GAP 7 mmol/L (5-15); CALCIUM 8.8 mg/dL (8.5-10.1); CHLORIDE 102 mmol/L (98-107); CREATININE 1.21 mg/dL (0.55-1.02)
[2019-06-08] MEDS: [UNRECOGNIZED DRUG - OTHER] PO SCH ×3 (07:00→23:00)
[2019-06-08 08:25] VITALS: BP 113/73
[2019-06-08] MEDS: POTASSIUM CHLORIDE 40 MEQ in SODIUM CHLORIDE 0.9% 500 ML IV SCH ×3 (09:11→17:11)
[2019-06-08] MEDS: ACETAMINOPHEN 325 MG TABLET PO PRN ×3 (09:13→20:33)
[2019-06-08] MEDS: METOLAZONE 5 MG TABLET PO SCH ×2 (09:14→15:12)
[2019-06-08] MEDS: FLECAINIDE 100MG TABLET PO SCH ×2 (09:14→20:33)
[2019-06-08] MEDS: ESCITALOPRAM 10MG TABLET PO SCH (09:14)
[2019-06-08] MEDS: ARIPIPRAZOLE 5 MG TABLET PO SCH (09:14)
[2019-06-08] MEDS: FUROSEMIDE 40 MG TABLET PO SCH (09:15)
[2019-06-08] MEDS: ENOXAPARIN 80 MG/0.8 ML SQ SCH ×2 (09:15→20:34)
[2019-06-08] MEDS: SPIRONOLACTONE 100 MG TABLET PO SCH ×2 (09:15→20:34)
[2019-06-08 14:15] VITALS: BP 104/67
[2019-06-08 17:27] LABS: ANION GAP 5 mmol/L (5-15); CALCIUM 8.9 mg/dL (8.5-10.1); CHLORIDE 104 mmol/L (98-107); CREATININE 1.28 mg/dL (0.55-1.02)
[2019-06-08] MEDS ORDERED: WARFARIN 7.5 MG TABLET PO-COUM ONE (18:00)
[2019-06-08 19:41] VITALS: BP 94/64
[2019-06-08] MEDS: BUMETANIDE 1 MG TABLET PO SCH (20:33)
[2019-06-08 20:34] VITALS: BP 105/72
[2019-06-08] MEDS: (Macitentan** (Opsumit**) 10 MG) PO SCH (23:00)
[2019-06-08] MEDS: MONTELUKAST 10 MG TABLET PO SCH (23:29)
[2019-06-09 00:10] VITALS: BP 95/67
[2019-06-09] MEDS: SODIUM CHLORIDE 0.9% 1,000 ML IV SCH ×3 (00:51→16:30)
[2019-06-09] MEDS: TADALAFIL 40 MG HOMEMEDPO SCH (06:00)
[2019-06-09 06:17] LABS: INTERNATIONAL NORMALIZED RATIO 1.66 (0.93-1.1); PROTHROMBIN TIME 17.1 Seconds (9.6-11.5)
[2019-06-09] MEDS: METOLAZONE 5 MG TABLET PO SCH ×2 (06:36→15:59)
[2019-06-09] MEDS: [UNRECOGNIZED DRUG - OTHER] PO SCH (06:37)
[2019-06-09 07:45] LABS: ANION GAP 6 mmol/L (5-15); CALCIUM 8.6 mg/dL (8.5-10.1); CHLORIDE 103 mmol/L (98-107)
[2019-06-09 07:46] LABS: CREATININE 1.09 mg/dL (0.55-1.02)
[2019-06-09] MEDS ORDERED: POTASSIUM CHLORIDE 80 MEQ in SODIUM CHLORIDE 0.9% 1,000 ML IV ONE (08:00)
[2019-06-09 08:44] VITALS: BP 90/53
[2019-06-09] MEDS: ENOXAPARIN 80 MG/0.8 ML SQ SCH (09:27)
[2019-06-09] MEDS: ARIPIPRAZOLE 5 MG TABLET PO SCH (09:28)
[2019-06-09] MEDS: ESCITALOPRAM 10MG TABLET PO SCH (09:28)
[2019-06-09] MEDS: ACETAMINOPHEN 325 MG TABLET PO PRN (09:28)
[2019-06-09] MEDS: SPIRONOLACTONE 100 MG TABLET PO SCH (09:29)
[2019-06-09] MEDS: FLECAINIDE 100MG TABLET PO SCH (09:29)
[2019-06-09] MEDS: FUROSEMIDE 40 MG TABLET PO SCH (09:30)
[2019-06-09 12:20] VITALS: BP 94/62
[2019-06-09] MEDS ORDERED: [UNRECOGNIZED DRUG - OTHER] PO SCH ×2 (15:00→23:00)
[2019-06-09 16:18] LABS: ANION GAP 5 mmol/L (5-15); CALCIUM 7.7 mg/dL (8.5-10.1); CHLORIDE 106 mmol/L (98-107); CREATININE 1.07 mg/dL (0.55-1.02)
[2019-06-09] MEDS ORDERED: ENOX80SY4 SQ (16:58)
[2019-06-09] MEDS ORDERED: ACET325T26 PO (16:58)
[2019-06-09] MEDS ORDERED: WARF7.5T PO-COUM (16:58)
[2019-06-09] MEDS ORDERED: WARFARIN 7.5 MG TABLET PO-COUM ONE (18:00)
== END 2019-06-09 18:43 | DRG 70 ==
LOC: ED 16:29 → EDIP 20:00 → 4EST 21:03 → 4WST 23:52
PROVIDERS: ADMIT Family Medicine; ATTEND Internal Medicine
PROC: 5A09357 Assistance with Respiratory Ventilation, Less than 24 Consecutive Hours, Continuous Positive Airway Pressure (ICD-10-PCS; principal; 2019-06-04)
PROC: 5A09357 Assistance with Respiratory Ventilation, Less than 24 Consecutive Hours, Continuous Positive Airway Pressure (ICD-10-PCS; 2019-06-07)
PROC: 5A09357 Assistance with Respiratory Ventilation, Less than 24 Consecutive Hours, Continuous Positive Airway Pressure (ICD-10-PCS; 2019-06-08)
PROC: 5A09357 Assistance with Respiratory Ventilation, Less than 24 Consecutive Hours, Continuous Positive Airway Pressure (ICD-10-PCS; 2019-06-09)
DX: G93.41 Metabolic encephalopathy (principal); N17.0 Acute kidney failure with tubular necrosis; J96.10 Chronic respiratory failure, unspecified whether with hypoxia or hypercapnia; E87.1 Hypo-osmolality and hyponatremia; D68.69 Other thrombophilia; I50.32 Chronic diastolic (congestive) heart failure; I13.0 Hypertensive heart and chronic kidney disease with heart failure and stage 1 through stage 4 chronic kidney disease, or unspecified chronic kidney disease; N18.4 Chronic kidney disease, stage 4 (severe); F22 Delusional disorders; D75.1 Secondary polycythemia; I48.91 Unspecified atrial fibrillation; T45.515A Adverse effect of anticoagulants, initial encounter; Z79.01 Long term (current) use of anticoagulants; E87.6 Hypokalemia; Z88.5 Allergy status to narcotic agent; Z88.8 Allergy status to other drugs, medicaments and biological substances; B19.20 Unspecified viral hepatitis C without hepatic coma; Z80.8 Family history of malignant neoplasm of other organs or systems; Z82.61 Family history of arthritis; Z82.49 Family history of ischemic heart disease and other diseases of the circulatory system; Z83.6 Family history of other diseases of the respiratory system; F41.0 Panic disorder [episodic paroxysmal anxiety]; F51.04 Psychophysiologic insomnia; G47.33 Obstructive sleep apnea (adult) (pediatric); I50.82 Biventricular heart failure; J44.9 Chronic obstructive pulmonary disease, unspecified; T50.1X5A Adverse effect of loop [high-ceiling] diuretics, initial encounter; Y92.89 Other specified places as the place of occurrence of the external cause; Z82.5 Family history of asthma and other chronic lower respiratory diseases; Z83.3 Family history of diabetes mellitus; Z99.81 Dependence on supplemental oxygen
CPT/HCPCS: 36415; 36600; 70450; 70551; 71045; 80048; 80053; 80307; 81001; 82140; 82607; 82803; 83605; 83735; 83880; 84100; 84443; 84484; 85025; 85610; 93005; 94640; 99285; G0378; J1650; J3480; J7626; 92523-GN; J7030; J7040

== ENCOUNTER → 2019-07-05 | Outpatient (CLI) | payer MEDICAID, MEDICARE ==
[~2019-07-05] MED LIST changes: +ACET325T26 PO; +ENOX80SY4 SQ; +FURO40TA6 PO; +MONT10TA11 PO; -MONT10TA9 PO; +QUET25TA7 PO; +WARF7.5T PO-COUM
[2019-07-05 15:49] LABS: INTERNATIONAL NORMALIZED RATIO 2.22 (0.93-1.1); PROTHROMBIN TIME 23.7 Seconds (9.6-11.5)
== END | disposition home or self-care (01) ==
LOC: CFH 13:11
PROVIDERS: ATTEND Internal Medicine Cardiovascular Disease
DX: I48.0 Paroxysmal atrial fibrillation (principal); Z79.01 Long term (current) use of anticoagulants
CPT/HCPCS: 36415; 85610

== ENCOUNTER 2019-08-09 13:24 | Outpatient (CLI) | payer MEDICARE, MEDICAID ==
[2019-08-09 15:26] LABS: MEAN PLATELET VOLUME 9.9 fL (7.4-10.4); PLATELET COUNT 200 x10^3/uL (130-400); RED BLOOD COUNT 5.12 x10^6/uL (3.82-5.3); RED CELL DISTRIBUTION WIDTH 15.7 % (9.6-15.2)
[2019-08-09 15:38] LABS: ALBUMIN 3.6 g/dL (3.4-5.0); ANION GAP 10 mmol/L (5-15); CALCIUM 8.5 mg/dL (8.5-10.1); CHLORIDE 105 mmol/L (98-107)
[2019-08-09 15:43] LABS: ALANINE AMINOTRANSFERASE 28 U/L (12-78); ALKALINE PHOSPHATASE 105 U/L (45-117); BILIRUBIN,TOTAL 0.4 mg/dL (0.2-1.0); CREATININE 1.67 mg/dL (0.55-1.02); TOTAL PROTEIN 7.8 g/dL (6.4-8.2)
== END 2019-08-09 23:59 | disposition home or self-care (01) ==
LOC: CFH 13:24
PROVIDERS: ATTEND Internal Medicine Cardiovascular Disease
DX: I27.0 Primary pulmonary hypertension (principal)
CPT/HCPCS: 36415; 80053; 83880; 85027

== ENCOUNTER → 2019-12-08 | Outpatient (CLI) | payer MEDICARE, MEDICAID ==
[~2019-12-08] MED LIST changes: -WARF5TAB PO; +WARF5TAB2 PO
[2019-12-08 15:45] LABS: ANION GAP 9 mmol/L (5-15); CALCIUM 8.8 mg/dL (8.5-10.1); CHLORIDE 101 mmol/L (98-107)
[2019-12-08 15:49] LABS: CREATININE 2.06 mg/dL (0.55-1.02)
== END | disposition home or self-care (01) ==
LOC: CFH 14:03
PROVIDERS: ATTEND Internal Medicine Cardiovascular Disease
DX: I48.0 Paroxysmal atrial fibrillation (principal); I27.21 Secondary pulmonary arterial hypertension; Z79.01 Long term (current) use of anticoagulants
CPT/HCPCS: 36415; 80048; 83880

== ENCOUNTER 2019-12-30 08:00 | Outpatient (CLI) | payer MEDICARE, MEDICAID | END 2019-12-30 23:59 | disposition home or self-care (01) | LOC: OUT 08:00 | PROVIDERS: ATTEND Orthopaedic Surgery | DX: Z01.818 Encounter for other preprocedural examination (principal); Z11.59 Encounter for screening for other viral diseases; M19.012 Primary osteoarthritis, left shoulder | CPT/HCPCS: 36415; 87635 ==

== ENCOUNTER → 2020-03-07 | Outpatient (CLI) | payer MEDICARE, MEDICAID | END | disposition home or self-care (01) | LOC: LAB 11:57 | PROVIDERS: ATTEND Family Medicine | DX: M25.50 Pain in unspecified joint (principal); Z20.828 Contact with and (suspected) exposure to other viral communicable diseases | CPT/HCPCS: 36415; 84550; 87635 ==

== ENCOUNTER → 2020-03-23 | Outpatient (CLI) | payer MEDICARE, MEDICAID ==
[~2020-03-23] MED LIST changes: +BUME1TAB21 PO; +DICL100G19 TP; +ESCI20TA PO; +QUET50TA79 PO; +TOPI100T8 PO
== END | disposition home or self-care (01) ==
LOC: STAR 09:35
PROVIDERS: ATTEND Orthopaedic Surgery
DX: Z01.818 Encounter for other preprocedural examination (principal); Z20.828 Contact with and (suspected) exposure to other viral communicable diseases; M19.011 Primary osteoarthritis, right shoulder; I27.20 Pulmonary hypertension, unspecified
CPT/HCPCS: 36415; 87635; 93005

== ENCOUNTER → 2020-03-23 | Outpatient (CLI) | payer MEDICARE, MEDICAID ==
[2020-03-23 12:53] LABS: INTERNATIONAL NORMALIZED RATIO 1.86 (0.93-1.1); PROTHROMBIN TIME 19.6 Seconds (9.6-11.5)
[2020-03-23 12:54] LABS: CHLORIDE 105 mmol/L (98-107)
[2020-03-23 13:14] LABS: ANION GAP 11 mmol/L (5-15); CALCIUM 9.7 mg/dL (8.5-10.1); CREATININE 1.68 mg/dL (0.55-1.02)
== END | disposition home or self-care (01) ==
LOC: CVU 08:56
PROVIDERS: ATTEND Internal Medicine Cardiovascular Disease
DX: I08.3 Combined rheumatic disorders of mitral, aortic and tricuspid valves (principal); I48.0 Paroxysmal atrial fibrillation; G47.30 Sleep apnea, unspecified; I27.21 Secondary pulmonary arterial hypertension; J44.9 Chronic obstructive pulmonary disease, unspecified; Z79.01 Long term (current) use of anticoagulants
CPT/HCPCS: 36415; 80048; 83880; 85610; 93306